=== PATIENT | female | born 1955 | race Caucasian/White ===

== ENCOUNTER 2020-02-17 13:10 | Observation (INO) | payer OTHER, MEDICAID, SELFPAY ==
[2020-02-17] VITALS (21 sets, daily range): BP systolic 87–107; BP diastolic 50–62; PULSE 62–85; RESP 8–25; TEMP 36.6–37.1; O2SAT 96–100; BMI 26.4
[2020-02-17] MEDS: MIDAZOLAM 5 MG/ML VIAL (13:20)
--- NOTE | 2020-02-17 13:28 | DI.RAD.S_ITS ---
PROCEDURE: XR CHEST 1V INDICATIONS: chest pain, 90sec CPR TECHNIQUE: One view of the chest was acquired. COMPARISON: None. FINDINGS: Surgical changes and devices: None. Lungs and pleura: There is prominence of the central pulmonary vasculature. No acute airspace consolidation is seen. No pleural effusions or pneumothorax. Mediastinum: Mediastinal contours appear normal. Heart size is normal. Mild atherosclerotic calcifications in the aortic arch. Bones and chest wall: No suspicious bony lesions. Overlying soft tissues appear unremarkable. IMPRESSION: Mild prominence of the central pulmonary vasculature. No acute airspace opacity. No pneumothorax. Dictated by: Max Bray M.D. on 02/17/2020 at 12:57 Approved by: Max Bray M.D. on 02/17/2020 at 13:00
[2020-02-17] MEDS: SODIUM CHLORIDE 0.9% 1,000 ML 1000 ML IV ×2 (13:35→14:25)
[2020-02-17] MEDS: MIDAZOLAM 2 MG/2 ML VIAL (13:35)
--- NOTE | 2020-02-17 13:48 | ED_ITS ---
HPI - General Adult General Chief complaint: Unresponsive Stated complaint: Unresponsive Time Seen by Provider: 02/17/20 13:10 History of Present Illness HPI narrative: 64-year-old woman brought in by medics with reports of known seizure disorder. Was at the [facility], was taking her topiramate. Went into the bathroom as was found unresponsive. CPR was briefly initiated(staff report 90 seconds), 2 doses of 0.4 mg of intranasal Narcan were administered and she was clearly beginning to respond by the time of medics arrival. She became increasingly agitated, complaining of central chest pain from the CPR and moderately combative. Initial workup is started subsequent seizure was noted in the emergency room (see MDM section for details). After the 2nd seizure was adequately controlled with Versed additional records became available. It turns out that she has been out of her to peer made 100 mg b.i.d. for the last 5 days. Apparently had a seizure yesterday and 2 earlier this morning (in the total number of seizures up to 4 today). 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 From notes she apparently fell last night and landed on her right arm and was originally complaining of some mild right arm pain with some mild swelling but full range of motion at elbow wrist and with fingers. Records indicate that she takes 30 mg of methadone daily Review of Systems Review of Systems ROS Unobtainable: Unobtainable due to mental status/LOC Patient History Medical History (Updated 02/17/20 @ 16:21 by Daphne Lee MD) Opioid use disorder Seizure disorder Exam Narrative Exam Narrative: General: Disheveled, mildly combative, well perfused, dramatic affect of behavior and complaints of pain post brief episode of CPR HEENT: Moist mucous membranes, normal sclera with reactive pupils, small contusion to the lateral aspect right eyebrow Neck: No JVD, supple Respiratory: Lungs are clear to auscultation, no wheezing no rales no rhonchi. Full and symmetrical air movement Cardiac: Tachycardic but Regular rate and rhythm no murmurs no bruits Abdomen: Soft nontender good bowel tones, no flank pain Skin: Multiple bruises in various stages of healing. Minor abrasion to the right landrum appears to be 24 hours old. Old track wallis, no rashes or obvious ce llulitis Neurologic: Confused, postictal Extremities: well perfused, minor swelling to the dorsum of the right forearm with no obvious bony abnormality, mild contusion to the right landrum with no obvi ous bony abnormality. Neurovascularly intact distal to both injuries Psych: Postictal, moaning and dramatic affect of behavior unable to refocus answer direct questions Initial Vital Signs Initial Vital Signs: Vital Signs Temperature 98.7 F 02/17/20 13:15 Pulse Rate 81 02/17/20 13:15 Respiratory Rate 22 02/17/20 13:15 Blood Pressure 91/50 L 02/17/20 13:15 Pulse Oximetry 100 02/17/20 13:15 Course Orders Ordered: ED Orders 02/17/20 13:28 XR chest 1V Stat EKG-12 Lead Stat 02/17/20 13:45 Complete Blood Count AUTO DIFF Stat Comprehensive Metabolic Panel Stat Magnesium Stat 02/17/20 14:19 Urinalysis and Microscopic Stat Urine Culture Stat Urine Drug Screen, Rapid Stat 02/17/20 14:56 XR forearm RT 2V Stat 02/17/20 15:04 COVID19 Stat 02/17/20 16:14 Acetaminophen Stat Blood Culture Stat Complete Blood Count AUTO DIFF Stat Comprehensive Metabolic Panel Stat Ethanol (ETOH) Stat Hepatic (Liver) Panel Stat Lactate (Lactic Acid) Stat Procalcitonin Stat Salicylate Stat Urine Drug Screen, Rapid Stat Sodium Chloride (Normal Saline 0.9%) 1,000 mls @ 150 mls/hr IV CONT WENCESLAO Discontinued Medications Sodium Chloride (Normal Saline 0.9%) 1,000 mls @ 1,000 mls/hr IV BOLUS ONE Stop: 02/17/20 14:26 Last Infusion: 02/17/20 14:35 Dose: 0 mls/hr Documented by: RAULINOLela Admin: 02/17/20 13:35 Dose: 1,000 mls/hr Documented by: CEASAR Levetiracetam 1,500 mg/ Sodium (Chloride) 115 mls @ 460 mls/hr IV NOW ONE Stop: 02/17/20 13:48 Last Infusion: 02/17/20 14:24 Dose: 0 mls/hr Documented by: RAULINOLela Admin: 02/17/20 14:05 Dose: 460 mls/hr Documented by: CEASAR Sodium Chloride (Normal Saline 0.9%) 1,000 mls @ 1,000 mls/hr IV BOLUS ONE Stop: 02/17/20 15:19 Last Infusion: 02/17/20 15:22 Dose: 0 mls/hr Documented by: Admin: 02/17/20 14:25 Dose: 1,000 mls/hr Documented by: CEASAR Lorazepam (Lorazepam 2 Mg/Ml Inj) 0.5 mg IV NOW ONE Stop: 02/17/20 13:28 Midazolam HCl (Midazolam 5 Mg/Ml Vial) 5 mg IM NOW ONE Stop: 02/17/20 16:17 Midazolam HCl (Midazolam 2 Mg/2 Ml Vial) 2 mg IV NOW ONE Stop: 02/17/20 16:17 Ondansetron HCl (Ondansetron 4 Mg/2 Ml Inj) 4 mg IV NOW ONE Stop: 02/17/20 13:28 Vital Signs Vital signs: Vital Signs - 8 hr 02/17/20 13:15 02/17/20 13:16 02/17/20 13:30 Temperature 98.7 F Pulse Rate 81 85 79 Respiratory Rate 22 25 H 20 Blood Pressure 91/50 L Pulse Oximetry 100 96 02/17/20 13:46 02/17/20 14:00 02/17/20 14:30 Temperature Pulse Rate 84 83 79 Respiratory Rate 15 Blood Pressure 107/56 L 91/50 L 87/55 L Pulse Oximetry 100 100 100 02/17/20 15:00 02/17/20 15:30 Temperature Pulse Rate 72 68 Respiratory Rate 12 11 L Blood Pressure 95/58 L 98/58 L Pulse Oximetry 100 98 Medical Decision Making Medical Records Medical records reviewed: Yes I reviewed the patient's medical records. Lab Data Lab results reviewed: Yes I reviewed the patient's lab results. Result diagrams: 02/17/20 13:45 02/17/20 13:45 Labs: Lab Results 02/17/20 02/17/20 02/17/20 Range/Units 13:45 13:45 14:19 WBC 15.6 H (4.5-11.0) X10^3/uL RBC 4.11 (4.0-5.2) X10^6/uL Hgb 12.8 (12.0-16.0) g/dL Hct 37.5 (36-46) % MCV 91.3 (80-100) fL MCH 31.2 (26-34) PG MCHC 34.2 (30-36) % RDW 14.0 (11.6-14.8) % Plt Count 128 L (150-400) X10^3/uL Neut % (Auto) 74.3 (50-75) % Lymph % (Auto) 16.6 L (25-40) % [place] % (Auto) 8.1 (3-14) % Eos % (Auto) 0.2 L (2-4) % Baso % (Auto) 0.8 (0-2) % Neut # (Auto) 78836 H (7113-2324) /uL Lymph # (Auto) 2600 (5129-1067) /uL [place] # (Auto) 1300 H (0-900) /uL Eos # (Auto) 0 (0-450) /uL Baso # (Auto) 100 (0-100) /uL Sodium 129 L (137-145) mmol/L Potassium 4.3 (3.4-5.1) mmol/L Chloride 96 L (98-107) mmol/L Carbon Dioxide 17 L (22-32) mmol/L BUN 43 H (7-17) mg/dL Creatinine 2.01 H (0.52-1.04) mg/dL Estimated GFR 25.1 L (>60) mL/min BUN/Creatinine Ratio 21.4 (6-22) Glucose 135 H (80-110) mg/dL Calcium 9.2 (8.4-10.2) mg/dL Magnesium 1.8 (1.6-2.3) mg/dL Total Bilirubin 1.1 (0.2-1.3) mg/dL AST 500 H (14-36) IU/L ALT 130 H (<35) IU/L Alkaline Phosphatase 101 (38-126) U/L Total Protein 8.6 H (6.3-8.2) g/dL Albumin 4.9 (3.5-5.0) g/dL Globulin 3.7 (1.7-4.1) g/dL Albumin/Globulin Ratio 1.3 (1.0-2.8) Urine Color Yellow Urine Appearance Clear Urine pH 5.0 (4.5-8.0) Ur Specific [place] >=1.030 H (1.000-1.035) Urine Protein 1+ H (Negative) Urine Glucose (UA) Negative (Negative) g/dL Urine Ketones Negative (NEGATIVE) Urine Occult Blood 3+ H (Negative) Urine Nitrate Negative (Negative) Urine Bilirubin Negative (NEGATIVE) Urine Urobilinogen 0.2 (0.2) E.U./dL Ur Leukocyte Esterase Negative (NEGATIVE) Urine RBC 5-10/hpf H (0-5/HPF) Urine WBC 0-1/hpf (0-5/HPF) Ur Squamous Epith Cells 0-1 /hpf (0-5/HPF) Amorphous Sediment 3+ Urine Bacteria None seen (None) Ur Culture Indicated? Specimen cultured U Opiates 300ng/mL cut (Negative) Ur Oxycodone Screen (Negative) Urine Methadone Screen (Negative) Ur Barbiturates Screen (Negative) U Tricyclic Antidepress (Negative) Ur Phencyclidine Scrn (Negative) Ur Amphetamines Screen (Negative) U Methamphetamines Scrn (Negative) Ur MDMA Scrn (Ecstasy) (Negative) U Benzodiazepines Scrn (Negative) Urine Cocaine Screen (Negative) U Marijuana (THC) Screen (Negative) COVID-19 PCR (Negative) 02/17/20 02/17/20 Range/Units 14:19 15:04 WBC (4.5-11.0) X10^3/uL RBC (4.0-5.2) X10^6/uL Hgb (12.0-16.0) g/dL Hct (36-46) % MCV (80-100) fL MCH (26-34) PG MCHC (30-36) % RDW (11.6-14.8) % Plt Count (150-400) X10^3/uL Neut % (Auto) (50-75) % Lymph % (Auto) (25-40) % [place] % (Auto) (3-14) % Eos % (Auto) (2-4) % Baso % (Auto) (0-2) % Neut # (Auto) (7740-3187) /uL Lymph # (Auto) (4757-7535) /uL [place] # (Auto) (0-900) /uL Eos # (Auto) (0-450) /uL Baso # (Auto) (0-100) /uL Sodium (137-145) mmol/L Potassium (3.4-5.1) mmol/L Chloride (98-107) mmol/L Carbon Dioxide (22-32) mmol/L BUN (7-17) mg/dL Creatinine (0.52-1.04) mg/dL Estimated GFR (>60) mL/min BUN/Creatinine Ratio (6-22) Glucose (80-110) mg/dL Calcium (8.4-10.2) mg/dL Magnesium (1.6-2.3) mg/dL Total Bilirubin (0.2-1.3) mg/dL AST (14-36) IU/L ALT (<35) IU/L Alkaline Phosphatase (38-126) U/L Total Protein (6.3-8.2) g/dL Albumin (3.5-5.0) g/dL Globulin (1.7-4.1) g/dL Albumin/Globulin Ratio (1.0-2.8) Urine Color Urine Appearance Urine pH (4.5-8.0) Ur Specific [place] (1.000-1.035) Urine Protein (Negative) Urine Glucose (UA) (Negative) g/dL Urine Ketones (NEGATIVE) Urine Occult Blood (Negative) Urine Nitrate (Negative) Urine Bilirubin (NEGATIVE) Urine Urobilinogen (0.2) E.U./dL Ur Leukocyte Esterase (NEGATIVE) Urine RBC (0-5/HPF) Urine WBC (0-5/HPF) Ur Squamous Epith Cells (0-5/HPF) Amorphous Sediment Urine Bacteria (None) Ur Culture Indicated? U Opiates 300ng/mL cut Positive H (Negative) Ur Oxycodone Screen Negative (Negative) Urine Methadone Screen Negative (Negative) Ur Barbiturates Screen Negative (Negative) U Tricyclic Antidepress Negative (Negative) Ur Phencyclidine Scrn Negative (Negative) Ur Amphetamines Screen Negative (Negative) U Methamphetamines Scrn Negative (Negative) Ur MDMA Scrn (Ecstasy) Negative (Negative) U Benzodiazepines Scrn Negative (Negative) Urine Cocaine Screen Negative (Negative) U Marijuana (THC) Screen Negative (Negative) COVID-19 PCR Negative (Negative) Imaging Data Chest x-ray: Radiologist's Impression: FINDINGS: Surgical changes and devices: None. Lungs and pleura: There is prominence of the central pulmonary vasculature. No acute airspace consolidation is seen. No pleural effusions or pneumothorax. Mediastinum: Mediastinal contours appear normal. Heart size is normal. Mild atherosclerotic calcifications in the aortic arch. Bones and chest wall: No suspicious bony lesions. Overlying soft tissues appear unremarkable. IMPRESSION: Mild prominence of the central pulmonary vasculature. No acute airspace opacity. No pneumothorax. Dictated by: Max Bray M.D. on 02/17/2020 at 12:57 XR Right forarm: Radiologist's Impression: FINDINGS: Bones: No acute fractures or dislocations. Small ossicle adjacent to the ulnar styloid. No suspicious bony lesions. Soft tissues: No suspicious soft tissue calcifications or masses. IMPRESSION: No acute osseous abnormality. Small ossicle adjacent to the ulnar styloid may be the sequelae of prior trauma. Dictated by: Bryce Rutherford M.D. on 02/17/2020 at 15:32 MDM Narrative Medical decision making narrative: 140pm patient began having a grand mal seiz ure. No IV access due to her history of IV drug use. She is given 5 mg of IM Versed with continued seizure activity based on eye movement however overall motor movement has calm significantly. Oxygen per nasal cannula is placed in saturations remained 100% range. Continues to seize and a peripheral IV is placed with ultrasound guidance into the right internal jugular vein for IV access. She was given an additional 2 mg of IV Versed with seizure seeming to stop completely and eyes returning to midline and mid position pupils. Labs are sent, chest x-rays obtained, Viera is placed for U tox. She does have a seizure history unclear why she has now had 2 seizures today. She was in the process of taking her 200 mg of topiramate today when she had the seizure noted at the clinic.. She has not been coherent enough since arrival in the ER, still partially postictal and then 2nd seizure. Notes indicate that she is on 30 mg of methadone a day. It may be that the 2 doses of 0.4 mg of in tranasal Narcan are exacerbating her baseline seizure disorder. Will await labs and continue close monitoring. White blood cell count elevation is likely secondary to demargination after multiple seizures today. Creatinine of 2 with unknown baseline. At least 4 seizures today, currently significantly sedated after Versed used to control seizure in the emergency department. Nasal airway in place and nasal cannula oxygen administered. Moderately hypotensive presumably secondary to Versed. As she is beginning to awake will continue to follow blood pressures. She is afebrile and per previous notes from her clinic visit is prior to the emergency visit she had no infectious disease complaints of any kind. 3:50 beginning to wake up, still sedated from the Versed. Blood pressure increasing. Still not oriented to person place or events. 415pm care is reviewed with Dr. Marino, hospitalist. She will be admitted for additional observation regarding recurrent seizures in the setting of known seizure disorder as well as dehydration with acute renal insufficiency. Will add of procalcitonin as well as blood cultures to confirm the clinical impression of no obvious infectious etiology to explain her symptoms today. She will be a admitted observation status with telemetry. Critical Care Time Critical Care Time Critical Care Time: Yes Total Critical Care Time: 31 Attestation: Critical care time is separate from other billable procedures. This critical care time includes consultation with family and other consulting doctors, review of records, and interpretation of data from labs, EKGs and imaging as well as managements of acute seizure her management with concern for airway compromise. Discharge Plan Departure Patient Disposition: Admitted as Observation Clinical Impression: Seizure disorder, Opioid use disorder, Acute dehydration, Acute renal insufficiency Contusion of forearm, right Qualifiers: Encounter type: initial encounter Qualified Code(s): S50.11XA - Contusion of right forearm, initial encounter Admit Date/Time: 02/17/20 16:19 Admit Provider: Angelqiue Marino
[2020-02-17 13:51] LABS: Add Manual Diff / Slide Review NO; Basophils Absolute Auto 100 /uL (0-100); Basophils Percent Auto 0.8 % (0-2); Eosinophils Absolute Auto 0 /uL (0-450); Eosinophils Percent Auto 0.2 % (2-4); Hematocrit 37.5 % (36-46); Hemoglobin 12.8 g/dL (12.0-16.0); Lymphocytes Absolute Auto 2600 /uL (1100-4500); Lymphocytes Percent Auto 16.6 % (25-40); Mean Corpuscular HGB Conc 34.2 % (30-36); Mean Corpuscular Hemoglobin 31.2 PG (26-34); Mean Corpuscular Volume 91.3 fL (80-100); Monocytes Absolute Auto 1300 /uL (0-900); Monocytes Percent Auto 8.1 % (3-14); Neutrophils Absolute Auto 11500 /uL (1500-7000); Neutrophils Percent Auto 74.3 % (50-75); Platelet Count 128 X10^3/uL (150-400); Red Blood Cell Count 4.11 X10^6/uL (4.0-5.2); White Blood Cell Count 15.6 X10^3/uL (4.5-11.0)
[2020-02-17 14:05] LABS: Albumin 4.9 g/dL (3.5-5.0); Albumin Globulin Ratio 1.3 (1.0-2.8); Alkaline Phosphatase 101 U/L (38-126); Aspartate Aminotransferase 500 IU/L (14-36); BUN Creatinine Ratio 21.4 (6-22); Bilirubin Total 1.1 mg/dL (0.2-1.3); Blood Urea Nitrogen 43 mg/dL (7-17); Calcium 9.2 mg/dL (8.4-10.2); Carbon Dioxide 17 mmol/L (22-32); Chloride 96 mmol/L (98-107); Estimated Glomerular Filt Rate 25.1 mL/min (>60); Globulin 3.7 g/dL (1.7-4.1); Glucose 135 mg/dL (80-110); HEMOLYSIS 66 (0-50); Magnesium 1.8 mg/dL (1.6-2.3); Potassium 4.3 mmol/L (3.4-5.1); Sodium 129 mmol/L (137-145); Total Protein 8.6 g/dL (6.3-8.2)
[2020-02-17] MEDS: levETIRAcetam 1,500 MG in SODIUM CHLORIDE 0.9% 100 ML 460 ML IV (14:05)
[2020-02-17 14:11] LABS: Alanine Aminotransferase 130 IU/L (<35)
[2020-02-17 14:49] LABS: Bacteria Urine None Seen
[2020-02-17 14:50] LABS: Appearance Urine UA CLEAR; Bilirubin Urine UA NEGATIVE (NEGATIVE); Color Urine UA YELLOW; Glucose Urine UA NEGATIVE (Negative); Ketones Urine UA NEGATIVE (NEGATIVE); Leukocyte Esterase Urine UA NEGATIVE (NEGATIVE); Nitrite Urine UA NEGATIVE (Negative); Occult Blood Urine UA 3+ (Negative); Protein Urine UA 1+ (Negative); Specific Gravity Urine UA >=1.030 (1.000-1.035); Urobilinogen Urine UA 0.2 E.U./dL (0.2)
[2020-02-17 14:56] LABS: UR Morphine/Opiate cutoff 300 Positive (Negative); Ur Creatinine Normal (Normal); Ur Specific Gravity Normal (Normal); Urine Amphetamines Negative (Negative); Urine Barbiturates Negative (Negative); Urine Benzodiazepines Negative (Negative); Urine Cocaine Negative (Negative); Urine MDMA Negative (Negative); Urine Methadone Negative (Negative); Urine Methamphetamines Negative (Negative); Urine Oxycodone Negative (Negative); Urine Phencyclidine Negative (Negative); Urine Tetrahydrocannabinol Negative (Negative); Urine Tricyclic Antidepressant Negative (Negative); Urine pH Normal (Normal)
--- NOTE | 2020-02-17 14:56 | DI.RAD.S_ITS ---
PROCEDURE: XR FOREARM RT 2V INDICATIONS: trauma TECHNIQUE: 2 views of the forearm were acquired. COMPARISON: None. FINDINGS: Bones: No acute fractures or dislocations. Small ossicle adjacent to the ulnar styloid. No suspicious bony lesions. Soft tissues: No suspicious soft tissue calcifications or masses. IMPRESSION: No acute osseous abnormality. Small ossicle adjacent to the ulnar styloid may be the sequelae of prior trauma. Dictated by: Bryce Rutherford M.D. on 02/17/2020 at 15:32 Approved by: Bryce Rutherford M.D. on 02/17/2020 at 15:34
[2020-02-17 15:03] LABS: Amorphous Sediment Urine 3+; Culture Indicated Urine Specimen Cultured; RBC Urine 5-10/HPF (0-5/HPF); Squamous Epithelial Cell Urine 0-1 /HPF (0-5/HPF); WBC Urine 0-1/HPF (0-5/HPF)
[2020-02-17 15:23] LABS: COVID19 -Nasal RAPID Negative (Negative)
[2020-02-17 16:58] LABS: Add Manual Diff / Slide Review NO; Basophils Absolute Auto 0 /uL (0-100); Basophils Percent Auto 0.1 % (0-2); Eosinophils Absolute Auto 0 /uL (0-450); Eosinophils Percent Auto 0.2 % (2-4); Hematocrit 32.4 % (36-46); Hemoglobin 11.4 g/dL (12.0-16.0); Lymphocytes Absolute Auto 900 /uL (1100-4500); Lymphocytes Percent Auto 10.2 % (25-40); Mean Corpuscular HGB Conc 35.1 % (30-36); Mean Corpuscular Hemoglobin 31.9 PG (26-34); Mean Corpuscular Volume 91.1 fL (80-100); Monocytes Absolute Auto 400 /uL (0-900); Monocytes Percent Auto 5.2 % (3-14); Neutrophils Absolute Auto 7200 /uL (1500-7000); Neutrophils Percent Auto 84.3 % (50-75); Platelet Count 70 X10^3/uL (150-400); Red Blood Cell Count 3.56 X10^6/uL (4.0-5.2); Red Cell Distribution Width 13.9 % (11.6-14.8); White Blood Cell Count 8.5 X10^3/uL (4.5-11.0)
--- NOTE | 2020-02-17 17:00 | PC.NURSE ---
attempted to call report to CHRISTIANO Vela on AC at [phone].
[2020-02-17 17:28] LABS: Lactate (Lactic Acid) 0.8 mmol/L (0.7-2.1)
[2020-02-17 17:28] LABS: Acetaminophen < 10 ug/mL (10-30); Alanine Aminotransferase 120 IU/L (<35); Albumin 3.7 g/dL (3.5-5.0); Albumin Globulin Ratio 1.2 (1.0-2.8); Alkaline Phosphatase 87 U/L (38-126); Aspartate Aminotransferase 416 IU/L (14-36); BUN Creatinine Ratio 25.8 (6-22); Bilirubin Total 0.7 mg/dL (0.2-1.3); Bilirubin Unconjugated 0.5 mg/dL (0.0-1.1); Blood Urea Nitrogen 41 mg/dL (7-17); Calcium 8.1 mg/dL (8.4-10.2); Carbon Dioxide 25 mmol/L (22-32); Chloride 99 mmol/L (98-107); Estimated Glomerular Filt Rate 32.9 mL/min (>60); Ethanol (ETOH) < 10 mg/dL; Glucose 122 mg/dL (80-110); HEMOLYSIS < 15 (0-50); Potassium 4.3 mmol/L (3.4-5.1); Salicylate < 1.0 mg/dL (<20); Sodium 128 mmol/L (137-145); Total Protein 6.7 g/dL (6.3-8.2)
[2020-02-17 17:57] LABS: Procalcitonin 5.25 ng/mL (<0.5)
--- NOTE | 2020-02-17 18:37 | PC.ADMIT ---
[address] [facility] 12 Admission Note: The patient,Fide Oconnor,64 y/o, was given written information regarding hospital policies, unit procedures and contact persons. Patient's smoking status: Current every day smoker. Vital Signs - 8 hr 02/17/20 13:15 02/17/20 13:16 02/17/20 13:30 Temperature 98.7 F Pulse Rate 81 85 79 Respiratory Rate 22 25 H 20 Blood Pressure 91/50 L Pulse Oximetry 100 96 02/17/20 13:46 02/17/20 14:00 02/17/20 14:30 Temperature Pulse Rate 84 83 79 Respiratory Rate 15 Blood Pressure 107/56 L 91/50 L 87/55 L Pulse Oximetry 100 100 100 02/17/20 15:00 02/17/20 15:30 02/17/20 16:00 Temperature Pulse Rate 72 68 67 Respiratory Rate 12 11 L 10 L Blood Pressure 95/58 L 98/58 L 99/59 L Pulse Oximetry 100 98 100 02/17/20 16:30 02/17/20 17:00 Temperature Pulse Rate 68 67 Respiratory Rate 12 10 L Blood Pressure 104/60 102/62 Pulse Oximetry 100 98 Patient brought up from ED via stretcher. Patient somnolent but wakes easily and then falls back to sleep. Moans and grimaces with movement d/t chest compressions by medics, aware of discomfort and lido patch ordered. No seizures noted at this time. Patient with 2L o2 sats high 90s. Found lockbox in belongings, patient states its from the [facility] clinic. Placed Lockbox and cigarettes in hospital safe, explained to patient about putting it in the safe, she was okay with it but still very somnolent and unable to sign paper for the safe.
[2020-02-17] MEDS: LIDOCAINE PATCH 1 EACH ADH..PATCH TOP (19:14)
[2020-02-17 19:49] LABS: UR Morphine/Opiate cutoff 300 Positive (Negative); Ur Creatinine Normal (Normal); Ur Specific Gravity Normal (Normal); Urine Benzodiazepines Positive (Negative); Urine Methadone Positive (Negative); Urine pH Normal (Normal)
[2020-02-17 19:50] LABS: Urine Amphetamines Negative (Negative); Urine Barbiturates Negative (Negative); Urine Cocaine Negative (Negative); Urine MDMA Negative (Negative); Urine Methamphetamines Negative (Negative); Urine Oxycodone Negative (Negative); Urine Phencyclidine Negative (Negative); Urine Tetrahydrocannabinol Negative (Negative); Urine Tricyclic Antidepressant Negative (Negative)
--- NOTE | 2020-02-17 20:07 | PM.HP.1 ---
History of Present Illness History of Present Illness Date Patient Seen: 02/17/20 Time Patient Seen: 20:05 Chief complaint: Unresponsive Narrative: Ms. Fide Oconnor is a 64-year-old female with a past medical history for opiate use disorder, seizure disorder and hypothyroidism who was brought into the ER by EMS following being found down. The patient has no recollection of events of earlier today and is a poor historian with difficulty remaining during patient interview. The patient was at the [facility] and reportedly received her daily methadone dose of 30 mg. Patient subsequently to the bathroom where she was found unresponsive with a history of continuing heroin use. CPR was initiated for an estimated 90 seconds and 2 doses 0.4 mg Narcan administered prior to arrival of EMS at which time the patient became agitated and combative. While in the ER the patient developed a another grand mal seizure and initially received 5 mg IM Versed lacking a patent IV due to IVDA. The patient continued disease therefore a right IJ IV was started and 2 mg mg of Versed administered IV with cessation of seizure activity. 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 The patient provides a variable history to different providers telling 1 she last injected heroin 2 days ago and telling another that she injected heroin and took her methadone today. She further adds that she has not taken her topiramate for 8 days but is unable to state why or who provides her medication, she states she ran out. ER documentation notes 1 seizure yesterday and 4 seizures today. The patient states she smokes a few cigarettes a day and drinks occasional alcohol. The patient denies recent illness cold or flu symptoms and has no known COVID-19 exposures. She denies headaches, dizziness or diplopia. She denies nasal congestion or sore throat. She complains of marked anterior chest wall pain after CPR. She denies abdominal pain, nausea vomiting or changes in bowel or bladder habits. Upon arrival to the ER the patient has temperature of 98.7?, heart rate of 81, blood pressure 91/50, respirations of 22 saturating 100% on 4 L nasal cannula. A chest x-ray is obtained which finds mild central pulmonary vascular prominence but no opacities and no pneumothorax. X-ray of the right forearm finds no fractures or dislocations or osseous abnormality. Twelve lead EKG finds sinus rhythm at a rate of 80 without ectopy or block, no ST or T-wave changes or evidence of infarct. On laboratory analysis the patient has white count of 8.5, hemoglobin of 11.4, hematocrit of 32.4 and platelets of 70. On chemistry she has hyponatremic at 1:28 a.m. and has a BUN of 41 with a creatinine 1.59 for an EGFR 32.9. Her nonfasting glucose is 122. Her magnesium is 1.8. Liver panel finds a total bilirubin is 0.5, AST of 416, ALT of 120 and alkaline phosphatase of 87. Her albumin level is 3.7. Procalcitonin is elevated at 5.25. On urinalysis she has a specific gravity of 1.030, positive protein and blood but negative leukocyte esterase nitrites WBCs and bacteria. While in the ER the patient received 2 doses of Versed, lorazepam 0.5 mg Keppra 500 mg Zofran 4 mg and 2 L normal saline in normal saline 150 cc/hour. The patient is admitted to the medicine service for multiple seizures today. Patient History Medical History Hypothyroidism Opioid use disorder Seizure disorder Surgical History History of craniotomy Family & Social History Family History (Updated 02/17/20 @ 22:38 by RUBEN Beebe) Father Hypertension Mother Emphysema lung Smoker Social History: household members none Prior Living Arrangements House Safety & Behavioral: Feels Safe in Current Yes Environment Been Physically Hurt or No Threatened By a Person Suicidal Ideation Description None Suicide Plan Description No Plan Tobacco & Substance use: Tobacco type cigarettes Smoking Status Current every day smoker alcohol intake former Substance Use Type heroin,IV drugs Meds Home Medications and Allergies Home Medications Medication Instructions Recorded Confirmed Type furosemide 20 mg PO DAILY 02/17/20 02/17/20 History levothyroxine 75 mcg PO DAILY 02/17/20 02/17/20 History methadone 30 mg PO DAILY 02/17/20 02/17/20 History spironolactone 25 mg PO DAILY 02/17/20 02/17/20 History topiramate 100 mg PO BID 02/17/20 02/17/20 History Allergies Allergy/AdvReac Type Severity Reaction Status Date / Time codeine Allergy Mild Rash Verified 12/04/20 18:20 clindamycin AdvReac Intermediate Agitated Verified 02/17/20 18:20 Review of Systems Review of Systems ROS: Yes All systems reviewed with the patient and are negative except as otherwise documented Exam Vital Signs (past 8 hours): - 02/17/20 14:30 02/17/20 15:00 02/17/20 15:30 Temperature Pulse Rate 79 72 68 Respiratory Rate 15 12 11 L Blood Pressure 87/55 L 95/58 L 98/58 L Pulse Oximetry 100 100 98 02/17/20 16:00 02/17/20 16:30 02/17/20 17:00 Temperature Pulse Rate 67 68 67 Respiratory Rate 10 L 12 10 L Blood Pressure 99/59 L 104/60 102/62 Pulse Oximetry 100 100 98 02/17/20 17:30 02/17/20 17:32 02/17/20 18:13 Temperature Pulse Rate 65 66 65 Respiratory Rate 13 13 13 Blood Pressure 98/58 L 99/58 L Pulse Oximetry 100 100 02/17/20 18:30 02/17/20 19:00 02/17/20 19:17 Temperature Pulse Rate 63 63 62 Respiratory Rate 8 L 8 L 13 Blood Pressure 96/56 L Pulse Oximetry 100 99 99 02/17/20 19:30 02/17/20 20:00 02/17/20 20:10 Temperature 97.8 F Pulse Rate 62 62 Respiratory Rate 9 L 10 L Blood Pressure Pulse Oximetry 99 100 02/17/20 20:30 Temperature Pulse Rate 62 Respiratory Rate 22 Blood Pressure Pulse Oximetry 100 Oxygen Delivery Method Nasal Cannula Oxygen Flow Rate 4 Narrative Exam Narrative: GENERAL APPEARANCE: well developed, adequately nourished, unkempt, difficult to arouse and maintain responsiveness. HEENT: Contusion right alevism, PERRLA, sluggish, conjunctiva clear, sclera nonicteric EOMs intact without nystagmus, no sinus tenderness to percussion, no rhinorrhea or epistaxis, mucous membranes are and tongue are dry and pink without lesions or exudate. NECK/THYROID: neck supple, no step-offs, no palpable muscle spasms, no JVD, no carotid bruit, no thyromegaly, trachea midline. LYMPH NODES: no cervical or supraclavicular lymphadenopathy. SKIN: [place], warm and dry, multiple track wallis, small firm nodule right ventral forearm nontender, multiple bruises in various stages of healing, abrasion and tibial tubercle appears older without bleeding, firm nontender area right hip without redness, no evidence of cellulitis HEART: regular rate and rhythm, S1-S2, no murmur, no rubs or gallops, brisk capillary refill, no edema LUNGS: clear to auscultation bilaterally, no coarseness crackles or wheezing, no cough present CHEST: Symmetrical movement, no accessory muscle use, shallow tidal volume, marked anterior chest wall pain on AP compression. ABDOMEN: Soft, dull to percussion, no distention, no epigastric or abdominal tenderness, no organomegaly, no flank or suprapubic tenderness, active bowel tones. BACK: Normal curvature, nontender to palpation. EXTREMITIES: Preserved range of motion in all extremities, right hip pain with internal rotation, RLE strength is 5/5 LLE strength is 3//5, no deformities or joint effusions. NEUROLOGIC: AAO to person only, states she is in [place], states the month of April correctly indicates the year, cranial nerves II-XII grossly intact, sensation intact to light touch, hearing grossly normal to speech. PSYCH: Patient difficult to remain awake requires repeat stimulation to respond to questions, questionable historian cooperative, stable behavior. Objective Labs Result Diagrams: 02/17/20 16:50 02/17/20 16:25 Labs: Laboratory Results - last 24 hr 02/17/20 02/17/20 02/17/20 13:45 13:45 13:45 WBC 15.6 H RBC 4.11 Hgb 12.8 Hct 37.5 MCV 91.3 MCH 31.2 MCHC 34.2 RDW 14.0 Plt Count 128 L Neut % (Auto) 74.3 Lymph % (Auto) 16.6 L [place] % (Auto) 8.1 Eos % (Auto) 0.2 L Baso % (Auto) 0.8 Neut # (Auto) 71490 H Lymph # (Auto) 2600 [place] # (Auto) 1300 H Eos # (Auto) 0 Baso # (Auto) 100 Sodium 129 L Potassium 4.3 Chloride 96 L Carbon Dioxide 17 L BUN 43 H Creatinine 2.01 H Estimated GFR 25.1 L BUN/Creatinine Ratio 21.4 Glucose 135 H Lactate Calcium 9.2 Magnesium 1.8 Total Bilirubin 1.1 Conjugated Bilirubin Unconjugated Bilirubin AST 500 H ALT 130 H Alkaline Phosphatase 101 Total Protein 8.6 H Albumin 4.9 Globulin 3.7 Albumin/Globulin Ratio 1.3 Procalcitonin TSH 2.91 Free T4 1.40 Urine Color Urine Appearance Urine pH Ur Specific [place] Urine Protein Urine Glucose (UA) Urine Ketones Urine Occult Blood Urine Nitrate Urine Bilirubin Urine Urobilinogen Ur Leukocyte Esterase Urine RBC Urine WBC Ur Squamous Epith Cells Amorphous Sediment Urine Bacteria Ur Culture Indicated? Nasal Screen MRSA (PCR) Salicylates U Opiates 300ng/mL cut Ur Oxycodone Screen Urine Methadone Screen Acetaminophen Ur Barbiturates Screen U Tricyclic Antidepress Ur Phencyclidine Scrn Ur Amphetamines Screen U Methamphetamines Scrn Ur MDMA Scrn (Ecstasy) U Benzodiazepines Scrn Urine Cocaine Screen U Marijuana (THC) Screen Ethyl Alcohol COVID-19 PCR 02/17/20 02/17/20 02/17/20 14:19 14:19 15:04 WBC RBC Hgb Hct MCV MCH MCHC RDW Plt Count Neut % (Auto) Lymph % (Auto) [place] % (Auto) Eos % (Auto) Baso % (Auto) Neut # (Auto) Lymph # (Auto) [place] # (Auto) Eos # (Auto) Baso # (Auto) Sodium Potassium Chloride Carbon Dioxide BUN Creatinine Estimated GFR BUN/Creatinine Ratio Glucose Lactate Calcium Magnesium Total Bilirubin Conjugated Bilirubin Unconjugated Bilirubin AST ALT Alkaline Phosphatase Total Protein Albumin Globulin Albumin/Globulin Ratio Procalcitonin TSH Free T4 Urine Color Yellow Urine Appearance Clear Urine pH 5.0 Ur Specific [place] >=1.030 H Urine Protein 1+ H Urine Glucose (UA) Negative Urine Ketones Negative Urine Occult Blood 3+ H Urine Nitrate Negative Urine Bilirubin Negative Urine Urobilinogen 0.2 Ur Leukocyte Esterase Negative Urine RBC 5-10/hpf H Urine WBC 0-1/hpf Ur Squamous Epith Cells 0-1 /hpf Amorphous Sediment 3+ Urine Bacteria None seen Ur Culture Indicated? Specimen cultured Nasal Screen MRSA (PCR) Salicylates U Opiates 300ng/mL cut Positive H Ur Oxycodone Screen Negative Urine Methadone Screen Negative Acetaminophen Ur Barbiturates Screen Negative U Tricyclic Antidepress Negative Ur Phencyclidine Scrn Negative Ur Amphetamines Screen Negative U Methamphetamines Scrn Negative Ur MDMA Scrn (Ecstasy) Negative U Benzodiazepines Scrn Negative Urine Cocaine Screen Negative U Marijuana (THC) Screen Negative Ethyl Alcohol COVID-19 PCR Negative 02/17/20 02/17/20 02/17/20 16:25 16:25 16:50 WBC 8.5 RBC 3.56 L Hgb 11.4 L Hct 32.4 L MCV 91.1 MCH 31.9 MCHC 35.1 RDW 13.9 Plt Count 70 L Neut % (Auto) 84.3 H Lymph % (Auto) 10.2 L [place] % (Auto) 5.2 Eos % (Auto) 0.2 L Baso % (Auto) 0.1 Neut # (Auto) 7200 H Lymph # (Auto) 900 L [place] # (Auto) 400 Eos # (Auto) 0 Baso # (Auto) 0 Sodium 128 L Potassium 4.3 Chloride 99 Carbon Dioxide 25 BUN 41 H Creatinine 1.59 H Estimated GFR 32.9 L BUN/Creatinine Ratio 25.8 H Glucose 122 H Lactate Calcium 8.1 L Magnesium Total Bilirubin 0.7 Conjugated Bilirubin 0.0 Unconjugated Bilirubin 0.5 AST 416 H ALT 120 H Alkaline Phosphatase 87 Total Protein 6.7 Albumin 3.7 Globulin 3.0 Albumin/Globulin Ratio 1.2 Procalcitonin 5.25 H TSH Free T4 Urine Color Urine Appearance Urine pH Ur Specific [place] Urine Protein Urine Glucose (UA) Urine Ketones Urine Occult Blood Urine Nitrate Urine Bilirubin Urine Urobilinogen Ur Leukocyte Esterase Urine RBC Urine WBC Ur Squamous Epith Cells Amorphous Sediment Urine Bacteria Ur Culture Indicated? Nasal Screen MRSA (PCR) Salicylates < 1.0 U Opiates 300ng/mL cut Ur Oxycodone Screen Urine Methadone Screen Acetaminophen < 10 L Ur Barbiturates Screen U Tricyclic Antidepress Ur Phencyclidine Scrn Ur Amphetamines Screen U Methamphetamines Scrn Ur MDMA Scrn (Ecstasy) U Benzodiazepines Scrn Urine Cocaine Screen U Marijuana (THC) Screen Ethyl Alcohol < 10 COVID-19 PCR 02/17/20 02/17/20 02/17/20 17:00 18:15 19:40 WBC RBC Hgb Hct MCV MCH MCHC RDW Plt Count Neut % (Auto) Lymph % (Auto) [place] % (Auto) Eos % (Auto) Baso % (Auto) Neut # (Auto) Lymph # (Auto) [place] # (Auto) Eos # (Auto) Baso # (Auto) Sodium Potassium Chloride Carbon Dioxide BUN Creatinine Estimated GFR BUN/Creatinine Ratio Glucose Lactate 0.8 Calcium Magnesium Total Bilirubin Conjugated Bilirubin Unconjugated Bilirubin AST ALT Alkaline Phosphatase Total Protein Albumin Globulin Albumin/Globulin Ratio Procalcitonin TSH Free T4 Urine Color Urine Appearance Urine pH Ur Specific [place] Urine Protein Urine Glucose (UA) Urine Ketones Urine Occult Blood Urine Nitrate Urine Bilirubin Urine Urobilinogen Ur Leukocyte Esterase Urine RBC Urine WBC Ur Squamous Epith Cells Amorphous Sediment Urine Bacteria Ur Culture Indicated? Nasal Screen MRSA (PCR) Positive for mrsa H Salicylates U Opiates 300ng/mL cut Positive H Ur Oxycodone Screen Negative Urine Methadone Screen Positive H Acetaminophen Ur Barbiturates Screen Negative U Tricyclic Antidepress Negative Ur Phencyclidine Scrn Negative Ur Amphetamines Screen Negative U Methamphetamines Scrn Negative Ur MDMA Scrn (Ecstasy) Negative U Benzodiazepines Scrn Positive H Urine Cocaine Screen Negative U Marijuana (THC) Screen Negative Ethyl Alcohol COVID-19 PCR Assessment & Plan Assessment & Plan narrative: This is a 64-year-old female with a past medical history significant for opiate use disorder, seizure disorder hypothyroidism who was at her methadone clinic where she was found down and unresponsive. CPR was initiated with administration Narcan with the patient waking too agitated and combative. Patient endorses receiving her methadone today and using heroin and has not taken her seizure medication for 8 days. The patient had 1 seizure yesterday and 4 today. 1. Seizure disorder with multiple seizures, not status epilepticus, chronic, present on admission, active -patient was found down and unresponsive at methadone clinic. Is unclear with his secondary to seizure or drug overdose. -patient has been down for topiramate for 8 days, she has numerous bruises in various stages of healing, through history obtained by the ER provider the patient had 1 seizure yesterday and appears to had 4 seizures today. -most recent seizure witnessed in the ER [place] in character requiring benzodiazepine for termination of seizure activity. -patient received Keppra 500 mg IV x1 in the ER. -or topiramate 100 mg twice daily. -ordered lorazepam 1 mg IV every 2 hours for seizures or may repeat x1 in 5 minutes for continued seizure activity. -seizure precautions. 2. acute heroin overdose on chronic opiate use disorder, present on admission, active. -patient was found unresponsive at methadone clinic where she receives methadone 30 mg daily. -patient endorses continuing use of heroin with last use today. Patient does not know their own was cut with other product. -patient was found down at the methadone clinic and responded well to intranasal Narcan 2 doses. 3. Acute dehydration, present on admission, active. -patient appears clinically dry even following receiving 2 L of saline in the emergency department. -sodium is low 128, urine specific gravity is 1.030 without evidence of ketones, elevated BUN at 41, and elevated creatinine 1.59 with no value available for comparison. BUN creatinine ratio is 25.8 -will continue rehydration with normal saline at 100 cc/hour 4. Elevated transaminase, acute, present on admission, active. -patient has a total bilirubin of 0.5, AST of 416 and ALT of 120 and alkaline phosphatase of 87. -the patient source is minimal alcohol intake and is significantly dehydrated. -the elevation is bleed related to some significant dehydration however will also obtain an acute hepatitis panel in the setting of IVDA. 5. Hypothyroidism, chronic, stable. -patient stopped taking her levothyroxine 75 mcg daily. -this may be participatory in exacerbation seizure activity, will check TSH. -ordered levothyroxine 75 mcg daily. 5. Medical nonadherence. -the patient has been been prescribed multiple medications including Lasix 40 mg and spirolactone 25 mg a day, levothyroxine 75 mcg today which she states she has decided to stop without discussing with her provider. -the patient is unable to state who prescribes her medications, per the pharmacy record she has into the care of Angie Coleman MD. -patient states she ran out of her seizure medication 8 days ago and had not sought to obtain a refil. -it is unclear whether this is related to monetary resources or resources redirected to heroin use. VTE prophylaxis: Heparin (plate are 70 will recheck platelets in morning). IV fluid: Normal saline at 100 cc per. Diet: Regular advanced as tolerated. Code status: Full code patient designates bread sure min her ex- to be her surrogate decision maker. the patient is admitted to the intensive care unit for recurrence seizure activity and drug overdose with altered mental status requiring close monitoring and treatment. The patient is admitted as observation with expected length of stay to be less than 2 midnights. COVID-19 COVID-19 status: Negative Result date/Date tested (Pos, Neg/Pending): 02/17/20 Scores GCS Ernst coma scale eye opening: To sound Ernst coma scale verbal response: Confused Ernst coma scale motor response: Obey commands Sigurd coma scale total score: 13 Quality VTE Deep Vein Thrombosis/Pulmonary Embolism Present on Admission: No
[2020-02-17] MEDS: SODIUM CHLORIDE 0.9% 1,000 ML 100 ML IV (20:48)
[2020-02-17 21:09] LABS: Thyroid Stimulating Hormone 2.91 uIU/mL (0.47-4.68)
[2020-02-17] MEDS: HEPARIN 5,000 UNIT/ML VIAL 5000 UNIT SUBCUT (21:42)
[2020-02-17] MEDS: TOPIRAMATE 100 MG TABLET PO (21:42)
--- NOTE | 2020-02-17 21:50 | PC.NURSE ---
Pt arrived in rm 226 per stretcher from ED @ 1740. Pt Lethargic but wakes to answer questions. Admission assessment completed and noted that Pt has weakness of the left arm and leg, which per history is typical after she has a seizure. Seizure precautions in place, oriented to environment and cooperative with care. Placed in Contact isolation for MRSA + ) IV to R EJ infusing NS @ 100hr.
[2020-02-18 00:10] VITALS: BP 91/65; PULSE 59; RESP 20; TEMP 36.3; O2SAT 99
[2020-02-18] MEDS: IBUPROFEN 600 MG TABLET PO ×2 (00:17→08:37)
[2020-02-18 04:30] VITALS: BP 94/52; PULSE 63; RESP 15; TEMP 36.1; O2SAT 99
[2020-02-18 04:47] LABS: Alanine Aminotransferase 125 IU/L (<35); Albumin 3.6 g/dL (3.5-5.0); Albumin Globulin Ratio 1.2 (1.0-2.8); Alkaline Phosphatase 68 U/L (38-126); BUN Creatinine Ratio 32.7 (6-22); Blood Urea Nitrogen 37 mg/dL (7-17); Calcium 8.7 mg/dL (8.4-10.2); Carbon Dioxide 27 mmol/L (22-32); Chloride 103 mmol/L (98-107); Estimated Glomerular Filt Rate 48.8 mL/min (>60); Globulin 3.1 g/dL (1.7-4.1); Glucose 94 mg/dL (80-110); Sodium 130 mmol/L (137-145); Total Protein 6.7 g/dL (6.3-8.2)
[2020-02-18 04:50] LABS: Add Manual Diff / Slide Review NO; Basophils Absolute Auto 100 /uL (0-100); Basophils Percent Auto 1.3 % (0-2); Eosinophils Absolute Auto 100 /uL (0-450); Eosinophils Percent Auto 1.5 % (2-4); Hematocrit 31.5 % (36-46); Hemoglobin 10.9 g/dL (12.0-16.0); Lymphocytes Absolute Auto 1700 /uL (1100-4500); Lymphocytes Percent Auto 28.1 % (25-40); Mean Corpuscular HGB Conc 34.6 % (30-36); Mean Corpuscular Hemoglobin 31.8 PG (26-34); Mean Corpuscular Volume 91.9 fL (80-100); Monocytes Absolute Auto 500 /uL (0-900); Monocytes Percent Auto 7.5 % (3-14); Neutrophils Absolute Auto 3700 /uL (1500-7000); Neutrophils Percent Auto 61.6 % (50-75); Platelet Count 68 X10^3/uL (150-400); Red Blood Cell Count 3.43 X10^6/uL (4.0-5.2); Red Cell Distribution Width 14.3 % (11.6-14.8); White Blood Cell Count 6.1 X10^3/uL (4.5-11.0)
[2020-02-18 04:51] LABS: HEMOLYSIS 92 (0-50)
[2020-02-18 04:54] LABS: Potassium 4.4 mmol/L (3.4-5.1)
[2020-02-18 04:55] LABS: Aspartate Aminotransferase 390 IU/L (14-36)
[2020-02-18 04:56] LABS: NT-proBNP (BNP-Adult 18+) 3050 pg/mL (<125)
[2020-02-18] MEDS: SODIUM CHLORIDE 0.9% 1,000 ML 100 ML IV (06:16)
--- NOTE | 2020-02-18 06:46 | PC.NURSE ---
Addendum entered by Shaunna Hanna R.N. 02/18/20 06:53: RUBEN Hannah notified of patients RR between 9-12 during the shift. No orders received. Will continue to monitor patient. Original Note: lumber stacker note: Patient remains lethargic during the shift, but does awaken to voice/touch. Patient unable to recall events from yesterday or how she got to [place]. Patient can state her name//year. Patient with left sided weakness on initial assessment in both upper and lower extremities, but generalized, bilateral weakness on 0400 assessment, not appreciated specifically on left side. Patient requesting Methadone NETO, informed her it is not available until 0900. VSS throughout shift with SBP in 90s, MAP >65. Good UOP via moody cath. IV site - left EJ, C/D/I and patent with IV fluids infusing. Patient states she is starting to feel sick. No seizure activity noted during the shift. Call light in reach, patient able to make needs/concerns known.
[2020-02-18 08:26] VITALS: BP 96/56; PULSE 64; RESP 24; TEMP 36.8; O2SAT 98
[2020-02-18] MEDS: HEPARIN 5,000 UNIT/ML VIAL 5000 UNIT SUBCUT (08:35)
[2020-02-18] MEDS: METHADONE 10 MG TABLET 30 MG PO (08:36)
[2020-02-18] MEDS: TOPIRAMATE 100 MG TABLET PO (08:36)
--- NOTE | 2020-02-18 08:47 | CM.SWNOTE ---
BARREL LOADER AND CLEANER Note BARREL LO[employer]ER AND CLEANER consult received to complete LIZZETTE assessment for this 64 yo female, arrives via EMS after being found unresponsive in the BR at [facility]. According to notes, PMH includes seizure disorder and h/o craniotomy. Patient goes to [facility] for her daily Methodone, clinic records from [facility] indicate patient went to the clinic to refill her topiramate and patient endorsed to nursing staff that she took her methadone but was still feeling poorly so used heroin. Patient expected to be DC today according to RN Antonia. Needs [facility] transport back to [facility]. Met w/patient, introduced role. Patient in good spirits this morning. Patient lives in [facility], near [place]. She lives alone in a double wide trailer, has a dog, and states she is in the process of obtaining a [employer] cg, CM is Lucía, hours unknown at this time. Patient gets transportation down to [facility] M-F for her Methadone dose. Patient states she was going to [place] before that but lost her ride, and so had to rely on [facility] transport, which takes her to the nearest Methadone clinic (?) Patient denies current IVDU, this BARREL LOADER AND CLEANER asks what happened at [facility]? Patient states she cannot remember. Her last memory is going into the clinic and taking her Methadone dose. Patient does not share additional details about current and/or h/o IVDU, denies. patient is worried about her dog, states she has no children and no neighbors to assist her. Patient denies needs from this BARREL LOADER AND CLEANER, states she is retired and has all basic needs met; she has food stamps, has transportation and housing. BRITTNI Benton
--- NOTE | 2020-02-18 10:01 | PT.IIE ---
Surgical History (Last Reviewed 02/17/20 @ 22:37 by RUBEN Beebe) History of craniotomy Medical History (Last Reviewed 02/17/20 @ 22:37 by RUBEN Beebe) Hypothyroidism Opioid use disorder Seizure disorder Physical Therapy Inpatient Evaluation/Re-Eval M1 PT/OT-IP Prior Functional Status Start: 02/18/20 11:20 Freq: NEEDED Status: Active Protocol: Document 02/18/20 10:02 AB (Rec: 02/18/20 11:31 [facility] Medical Review Prior Functional Status Medical History Reviewed Yes Communication able to make needs known; pt a little sleepy and requires cues to stay awake but able to follow directions Mobility and Gait Pt stated that she is independent with all mobilities and ambulation without AD Social History Household Members none Living Arrangements RV Number of Floors (Floors) One Floor Number of Stairs To Enter/Railing? 3 steps B rails Home Environment Standard Height Toilet,Tub/ Shower Home Equipment Front Wheel Walker,Hand Held Shower,Grab Bars Near Toilet, Grab Bars In Shower M2 PT-IP Current Condition Start: 02/18/20 11:20 Freq: NEEDED Status: Active Protocol: Document 02/18/20 10:02 AB (Rec: 02/18/20 11:31 AB [id number]) Physical Therapy Current Condition Current Condition Evaluation Date 02/18/20 Treatment Diagnosis seizure d/o; difficulty in walking; weakness Onset Date Precautions Other Precautions falls M3 PT-IP Subjective Start: 02/18/20 11:20 Freq: NEEDED Status: Active Protocol: Document 02/18/20 10:02 AB (Rec: 02/18/20 11:31 AB [id number]) Subjective Physical Therapy Visit Type Type Initial Evaluation Visit Start Time 10:02 Visit Stop Time 10:40 Total Visit Minutes 38 Number of TANK SETTER HELPER Visits 0 Physical Therapy Visit Comments Patient Comments pt is agreeable to do PT Therapy Pain Assessment Pain When Pain Assessed At Rest Location Generalized Scale Used pain scale not stated Pain Management Techniques Distraction,Modification of Treatment,Timing of Activity with Medications M4 PT-IP Mobility and Gait Start: 02/18/20 11:20 Freq: NEEDED Status: Active Protocol: Document 02/18/20 10:02 AB (Rec: 02/18/20 11:31 AB [id number]) PT-Bed Mobility Assessment Supine to Sit Supine to Sit Standby Assistance PT-Transfer Assessment Sit to and From Stand Sit to and from Stand Standby Assistance Equipment Transfer Assistive Device Gait Belt,Front Wheeled Walker Transfers Transfer Destination Chair Transfer Technique Stand Step Pivot Transfer Ability Level of Assist Contact Guard Assistance,1 Person Assistance,Use of Upper Extremities Comments Mobility Comments pt completed supine to sit SBA . pt is very impulsive. completed sit to stand CGA and transferred to chair CGA. ambulated in room using FWW 30 ft CGA. presents with unsteady ataxic gait and pt has decrease safety awareness requiring cues to slow down. completed up/down step stool with bilateral rail supports CGA. sat back on chair. call light and table placed within reach. Gait Assessment Gait Gait Assistance Required: Contact Guard Assist Distance (Feet) 30 Able to Maintain Weight Bearing Status Yes During Gait Assistive Devices Assistive Device Gait Belt,Front Wheeled Walker Orthotic/Prosthetic Devices or Brace: No Gait Deviations General Gait Pattern Ataxic,Decreased Stride Length ,Decreased Feet Clearance Factors Limiting Gait Function Factors Limiting Gait Function Decreased Activity Tolerance, Decreased Strength,Poor Balance,Poor Safety Awareness Stair Climbing Assessment Evaluation Level of Assist On Stairs Contact Guard Assistance Devices Stair Climbing Assistive Devices Left Railing,Right Railing Technique/Endurance Stair Climbing Direction Ascend and Descend Stair Climbing Technique Step to Step Number of Steps Climbed 1 Query Text: Stair Climbing Set # Repetitions (reps) 2 PT-Balance Assessment Sitting Balance and Reactions Static Sitting Balance Ability Good Dynamic Sitting Balance Ability Good Standing Balance and Reactions Static Standing Balance Ability Fair Dynamic Standing Balance Ability Fair Device Used using fWW M5 PT-IP Objective Assessments Start: 02/18/20 11:20 Freq: NEEDED Status: Active Protocol: Document 02/18/20 10:02 AB (Rec: 02/18/20 11:31 AB [id number]) Orientation Orientation/Cognition Level of Alertness Alert Orientation Name Safety Awareness Decreased Safety Awareness Memory Description Short Term Impaired Gross Range of Motion Lower Extremity ROM Assessment Within Functional Limits Strength Lower Extremity Strength Hip 4-/5 Knee 4-/5 Muscle Tone Muscle Tone WNL Yes M6 PT-IP Treatment Start: 02/18/20 11:20 Freq: NEEDED Status: Active Protocol: Document 02/18/20 10:02 AB (Rec: 02/18/20 11:31 AB [email or web address]) Physical Therapy Treatment Education Education Provided Safety M7 PT-IP Assessment and Plan Start: 02/18/20 11:20 Freq: NEEDED Status: Active Protocol: Document 02/18/20 10:02 AB (Rec: 02/18/20 11:31 AB [id number]) PT Summary Assessment and Plan Potential Rehabilitation Potential Fair Status of Condition at Evaluation Stable Summary Impairments Pain,ROM,Strength,Balance, Coordination,Sensation,Tone, Cognition,Bed Mobility, Transfers,Gait,Activity Tolerance Assessment Summary pt requiring CGA with mobility but with decrease activity tolerance and decrease safety awareness affecting independence. Recommending use of FWW at this time for safety and pt agreed. stated that she has one at home that she can use. pt will require HHPT to improve strength, balance and safety awareness Goals Bed Mobility Goal Independent Transfer Goal Independent,Front Wheeled Walker Gait Goal Independent,Front Wheel Walker Gait Distance 200 Other Goals ambulation without AD SBA 200 ft up/down 3 steps B rails mod I Days to Meet Goals 5 Frequency of Treatment Frequency Of Treatment Once a Day Treatment Plan Physical Therapy Treatment Plan Bed Mobility Training,Transfer Training,Gait Training, Therapeutic Exercise,Balance Retraining,Discharge Planning, Neuromuscular Re-ed, Coordination Retraining,Manual Therapy Recommendations To Nursing Amount of Assist Needed 1 Person Assist Discharge Recommendations PT Discharge Recommendations Home with Assistance,Home Health Transportation Needs at Discharge Private Vehicle
--- NOTE | 2020-02-18 11:24 | CM.DPC ---
DCP Cont: Patient has discharge orders today. BRITTNI Jason, performed initial assessment. Patient does have Medicaid, lives in [place], and has no transportation. Was able to call [facility], which operates under Medicaid, and set up transport for fern picker at 1300 by ER entrance. Gave them her address in [place], as well as Medicaid number. Updated nurse, Antonia, who will have patient at ER entrance at 1300. P: Patient is discharging home today. Lori Stockton RN/Welding Teacher
--- NOTE | 2020-02-18 12:23 | P.DS_ITS ---
History of Present Illness History of Present Illness Date Patient Seen: 02/18/20 Time Patient Seen: 12:23 Chief complaint: Unresponsive Narrative: As per RUBEN Beebe: Ms. Fide Oconnor is a 64-year-old female with a past medical history for opiate use disorder, seizure disorder and hypothyroidism who was brought into the ER by EMS following being found down. The patient has no recollection of events of earlier today and is a poor historian with difficulty remaining during patient interview. The patient was at the [facility] and reportedly received her daily methadone dose of 30 mg. Patient subsequently to the bathroom where she was found unresponsive with a history of continuing heroin use. CPR was initiated for an estimated 90 seconds and 2 doses 0.4 mg Narcan administered prior to arrival of EMS at which time the patient became agitated and combative. While in the ER the patient developed a another grand mal seizure and initially received 5 mg IM Versed lacking a patent IV due to IVDA. The patient continued disease therefore a right IJ IV was started and 2 mg mg of Versed administered IV with cessation of seizure activity. 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 The patient provides a variable history to different providers telling 1 she last injected heroin 2 days ago and telling another that she injected heroin and took her methadone today. She further adds that she has not taken her topiramate for 8 days but is unable to state why or who provides her medication, she states she ran out. ER documentation notes 1 seizure yesterday and 4 seizures today. The patient states she smokes a few cigarettes a day and drinks occasional alcohol. The patient denies recent illness cold or flu symptoms and has no known COVID-19 exposures. She denies headaches, dizziness or diplopia. She denies nasal congestion or sore throat. She complains of marked anterior chest wall pain a fter CPR. She denies abdominal pain, nausea vomiting or changes in bowel or bladder habits. Upon arrival to the ER the patient has temperature of 98.7?, heart rate of 81, blood pressure 91/50, respirations of 22 saturating 100% on 4 L nasal cannula. A chest x-ray is obtained which finds mild central pulmonary vascular prominence but no opacities and no pneumothorax. X-ray of the right forearm finds no fractures or dislocations or osseous abnormality. Twelve lead EKG finds sinus rhythm at a rate of 80 without ectopy or block, no ST or T-wave changes or evidence of infarct. On laboratory analysis the patient has white count of 8.5, hemoglobin of 11.4, hematocrit of 32.4 and platelets of 70. On chemistry she has hyponatremic at 1:28 a.m. and has a BUN of 41 with a creatinine 1.59 for an EGFR 32.9. Her nonfasting glucose is 122. Her magnesium is 1.8. Liver panel finds a total bilirubin is 0.5, AST of 416, ALT of 120 and alkaline phosphatase of 87. Her albumin level is 3.7. Procalcitonin is elevated at 5.25. On urinalysis she has a specific gravity of 1.030, positive protein and blood but negative leukocyte esterase nitrites WBCs and bacteria. While in the ER the patient rece ived 2 doses of Versed, lorazepam 0.5 mg Keppra 500 mg Zofran 4 mg and 2 L normal saline in normal saline 150 cc/hour. The patient is admitted to the medicine service for multiple seizures today. Discharge Providers Provider Date of admission: 02/17/20 16:19 Discharge Date: 02/18/20 Consults: 02/17/20 20:12 Consult to Discharge Planning Routine Comment: Consult to Physical Therapy Evaluate & Treat Comment: Physician Instructions: Evaluate and Treat 02/17/20 20:16 Consult to CHEMICAL PROCESSING EQUIPMENT REPAIRER - Drug Coordinator Routine Comment: CHEMICAL PROCESSING EQUIPMENT REPAIRER Consult: [facility] Need Behavioral Health Assess Discharge provider: Celestine Roldan DO Summary Hospital Course Discharge Diagnosis: 1. Seizure disorder with multiple seizures, not status epilepticus, chronic, present on admission, active 2. acute heroin overdose on chronic opiate use disorder, present on admission, active. 3. Acute dehydration, present on admission, resolved 4. Elevated transaminase, acute, present on admission, improved 5. Hypothyroidism, chronic, stable. 6. Medical nonadherence. 7. Hyponatremia, acute on chronic, present on admission. 8. Acute renal failure, present on admission, improved. Hospital Course: This is a 64-year-old female with a past medical history significant for opiate use disorder, seizure disorder hypothyroidism who was at her methadone clinic where she was found down and unresponsive. CPR was initiated with administration Narcan with the patient waking too agitated and combative. Patient endorsed receiving her methadone and using heroin and had not taken her seizure medication for 8 days. She had had multiple seizures the day of admission. Patient was given Keppra 500 mg in the emergency room and resumed on her home topiramate. Imaging did not reveal evidence of fracture. She had no evidence of seizure activity over the course of her observation. Infectious workup was unremarkable except for an elevated procalcitonin. Initial labs showed a markedly elevated AST level, a creatinine of 2.1, hyponatremia with a sodium of 129. All of these were likely elevated in the setting of acute dehydration and seizure activity and improved with continued fluids. She had an elevated proBNP, but on the morning after admission denied complaints of shortness of breath or dyspnea on exertion. This is likely elevated in the setting of her cirrhosis and volume overload as well as noncompliance with her home diuretics. Hepatitis serologies were sent and are currently pending at the time of discharge. She was discharged home with recommendation to follow up with her PCP next week. Status at Discharge Cognitive/behavioral status at discharge: oriented Functional status at discharge: independent ambulation Exam Vital Signs (past 8 hours): - 02/18/20 04:30 02/18/20 08:26 Temperature 96.9 F L 98.2 F Pulse Rate 63 64 Respiratory Rate 15 24 Blood Pressure 94/52 L 96/56 L Pulse Oximetry 99 98 Oxygen Delivery Method Room Air Oxygen Flow Rate 2 Narrative Exam Narrative: GENERAL APPEARANCE: well developed, adequately nourished, unkempt, awake and alert. HEENT: Contusion right [place], PERRLA, sluggish, conjunctiva clear, sclera nonicteric EOMs intact without nystagmus, no sinus tenderness to percussion, no rhinorrhea or epistaxis, mucous membranes are and tongue are dry and pink without lesions or exudate. NECK/THYROID: neck supple, no step-offs, no palpable muscle spasms, no JVD, no carotid bruit, no thyromegaly, trachea midline. LYMPH NODES: no cervical or supraclavicular lymphadenopathy. SKIN: [place], warm and dry, multiple track wallis, small firm nodule right ventral forearm nontender, multiple bruises in various stages of healing, abrasion and tibial tubercle appears older without bleeding, firm nontender area right hip without redness, no evidence of cellulitis HEART: regular rate and rhythm, S1-S2, no murmur, no rubs or gallops, brisk capillary refill. LUNGS: clear to auscultation bilaterally, no coarseness crackles or wheezing, no cough present CHEST: Symmetrical movement, no accessory muscle use, shallow tidal volume, marked anterior chest wall pain on AP compression. ABDOMEN: Soft, dull to percussion, no distention, no epigastric or abdominal tenderness, no organomegaly, no flank or suprapubic tenderness, active bowel tones. BACK: Normal curvature, nontender to palpation. EXTREMITIES: Preserved range of motion in all extremities. RUE swelling and LLE swelling without tenderness. NEUROLOGIC: AAO to person place and time, cranial nerves II-XII grossly intact, sensation intact to light touch, hearing grossly normal to speech. PSYCH: cooperative, stable behavior. Objective Labs Result Diagrams: 02/18/20 04:15 02/18/20 04:15 Labs: Laboratory Results - last 24 hr 02/17/20 02/17/20 02/17/20 13:45 13:45 13:45 WBC 15.6 H RBC 4.11 Hgb 12.8 Hct 37.5 MCV 91.3 MCH 31.2 MCHC 34.2 RDW 14.0 Plt Count 128 L Neut % (Auto) 74.3 Lymph % (Auto) 16.6 L Davison % (Auto) 8.1 Eos % (Auto) 0.2 L Baso % (Auto) 0.8 Neut # (Auto) 85291 H Lymph # (Auto) 2600 Davison # (Auto) 1300 H Eos # (Auto) 0 Baso # (Auto) 100 Sodium 129 L Potassium 4.3 Chloride 96 L Carbon Dioxide 17 L BUN 43 H Creatinine 2.01 H Estimated GFR 25.1 L BUN/Creatinine Ratio 21.4 Glucose 135 H Lactate Calcium 9.2 Magnesium 1.8 Total Bilirubin 1.1 Conjugated Bilirubin Unconjugated Bilirubin AST 500 H ALT 130 H Alkaline Phosphatase 101 NT-Pro-B Natriuret Pep Total Protein 8.6 H Albumin 4.9 Globulin 3.7 Albumin/Globulin Ratio 1.3 Procalcitonin TSH 2.91 Free T4 1.40 Urine Color Urine Appearance Urine pH Ur Specific Slaughters Urine Protein Urine Glucose (UA) Urine Ketones Urine Occult Blood Urine Nitrate Urine Bilirubin Urine Urobilinogen Ur Leukocyte Esterase Urine RBC Urine WBC Ur Squamous Epith Cells Amorphous Sediment Urine Bacteria Ur Culture Indicated? Nasal Screen MRSA (PCR) Salicylates U Opiates 300ng/mL cut Ur Oxycodone Screen Urine Methadone Screen Acetaminophen Ur Barbiturates Screen U Tricyclic Antidepress Ur Phencyclidine Scrn Ur Amphetamines Screen U Methamphetamines Scrn Ur MDMA Scrn (Ecstasy) U Benzodiazepines Scrn Urine Cocaine Screen U Marijuana (THC) Screen Ethyl Alcohol COVID-19 PCR 02/17/20 02/17/20 02/17/20 14:19 14:19 15:04 WBC RBC Hgb Hct MCV MCH MCHC RDW Plt Count Neut % (Auto) Lymph % (Auto) Davison % (Auto) Eos % (Auto) Baso % (Auto) Neut # (Auto) Lymph # (Auto) Davison # (Auto) Eos # (Auto) Baso # (Auto) Sodium Potassium Chloride Carbon Dioxide BUN Creatinine Estimated GFR BUN/Creatinine Ratio Glucose Lactate Calcium Magnesium Total Bilirubin Conjugated Bilirubin Unconjugated Bilirubin AST ALT Alkaline Phosphatase NT-Pro-B Natriuret Pep Total Protein Albumin Globulin Albumin/Globulin Ratio Procalcitonin TSH Free T4 Urine Color Yellow Urine Appearance Clear Urine pH 5.0 Ur Specific Slaughters >=1.030 H Urine Protein 1+ H Urine Glucose (UA) Negative Urine Ketones Negative Urine Occult Blood 3+ H Urine Nitrate Negative Urine Bilirubin Negative Urine Urobilinogen 0.2 Ur Leukocyte Esterase Negative Urine RBC 5-10/hpf H Urine WBC 0-1/hpf Ur Squamous Epith Cells 0-1 /hpf Amorphous Sediment 3+ Urine Bacteria None seen Ur Culture Indicated? Specimen cultured Nasal Screen MRSA (PCR) Salicylates U Opiates 300ng/mL cut Positive H Ur Oxycodone Screen Negative Urine Methadone Screen Negative Acetaminophen Ur Barbiturates Screen Negative U Tricyclic Antidepress Negative Ur Phencyclidine Scrn Negative Ur Amphetamines Screen Negative U Methamphetamines Scrn Negative Ur MDMA Scrn (Ecstasy) Negative U Benzodiazepines Scrn Negative Urine Cocaine Screen Negative U Marijuana (THC) Screen Negative Ethyl Alcohol COVID-19 PCR Negative 02/17/20 02/17/20 02/17/20 16:25 16:25 16:50 WBC 8.5 RBC 3.56 L Hgb 11.4 L Hct 32.4 L MCV 91.1 MCH 31.9 MCHC 35.1 RDW 13.9 Plt Count 70 L Neut % (Auto) 84.3 H Lymph % (Auto) 10.2 L Davison % (Auto) 5.2 Eos % (Auto) 0.2 L Baso % (Auto) 0.1 Neut # (Auto) 7200 H Lymph # (Auto) 900 L Davison # (Auto) 400 Eos # (Auto) 0 Baso # (Auto) 0 Sodium 128 L Potassium 4.3 Chloride 99 Carbon Dioxide 25 BUN 41 H Creatinine 1.59 H Estimated GFR 32.9 L BUN/Creatinine Ratio 25.8 H Glucose 122 H Lactate Calcium 8.1 L Magnesium Total Bilirubin 0.7 Conjugated Bilirubin 0.0 Unconjugated Bilirubin 0.5 AST 416 H ALT 120 H Alkaline Phosphatase 87 NT-Pro-B Natriuret Pep Total Protein 6.7 Albumin 3.7 Globulin 3.0 Albumin/Globulin Ratio 1.2 Procalcitonin 5.25 H TSH Free T4 Urine Color Urine Appearance Urine pH Ur Specific Slaughters Urine Protein Urine Glucose (UA) Urine Ketones Urine Occult Blood Urine Nitrate Urine Bilirubin Urine Urobilinogen Ur Leukocyte Esterase Urine RBC Urine WBC Ur Squamous Epith Cells Amorphous Sediment Urine Bacteria Ur Culture Indicated? Nasal Screen MRSA (PCR) Salicylates < 1.0 U Opiates 300ng/mL cut Ur Oxycodone Screen Urine Methadone Screen Acetaminophen < 10 L Ur Barbiturates Screen U Tricyclic Antidepress Ur Phencyclidine Scrn Ur Amphetamines Screen U Methamphetamines Scrn Ur MDMA Scrn (Ecstasy) U Benzodiazepines Scrn Urine Cocaine Screen U Marijuana (THC) Screen Ethyl Alcohol < 10 COVID-19 PCR 02/17/20 02/17/20 02/17/20 17:00 18:15 19:40 WBC RBC Hgb Hct MCV MCH MCHC RDW Plt Count Neut % (Auto) Lymph % (Auto) Davison % (Auto) Eos % (Auto) Baso % (Auto) Neut # (Auto) Lymph # (Auto) Davison # (Auto) Eos # (Auto) Baso # (Auto) Sodium Potassium Chloride Carbon Dioxide BUN Creatinine Estimated GFR BUN/Creatinine Ratio Glucose Lactate 0.8 Calcium Magnesium Total Bilirubin Conjugated Bilirubin Unconjugated Bilirubin AST ALT Alkaline Phosphatase NT-Pro-B Natriuret Pep Total Protein Albumin Globulin Albumin/Globulin Ratio Procalcitonin TSH Free T4 Urine Color Urine Appearance Urine pH Ur Specific Slaughters Urine Protein Urine Glucose (UA) Urine Ketones Urine Occult Blood Urine Nitrate Urine Bilirubin Urine Urobilinogen Ur Leukocyte Esterase Urine RBC Urine WBC Ur Squamous Epith Cells Amorphous Sediment Urine Bacteria Ur Culture Indicated? Nasal Screen MRSA (PCR) Positive for mrsa H Salicylates U Opiates 300ng/mL cut Positive H Ur Oxycodone Screen Negative Urine Methadone Screen Positive H Acetaminophen Ur Barbiturates Screen Negative U Tricyclic Antidepress Negative Ur Phencyclidine Scrn Negative Ur Amphetamines Screen Negative U Methamphetamines Scrn Negative Ur MDMA Scrn (Ecstasy) Negative U Benzodiazepines Scrn Positive H Urine Cocaine Screen Negative U Marijuana (THC) Screen Negative Ethyl Alcohol COVID-19 PCR 02/18/20 02/18/20 04:15 04:15 WBC 6.1 RBC 3.43 L Hgb 10.9 L Hct 31.5 L MCV 91.9 MCH 31.8 MCHC 34.6 RDW 14.3 Plt Count 68 L Neut % (Auto) 61.6 D Lymph % (Auto) 28.1 Davison % (Auto) 7.5 Eos % (Auto) 1.5 L Baso % (Auto) 1.3 Neut # (Auto) 3700 Lymph # (Auto) 1700 Davison # (Auto) 500 Eos # (Auto) 100 Baso # (Auto) 100 Sodium 130 L Potassium 4.4 Chloride 103 Carbon Dioxide 27 BUN 37 H Creatinine 1.13 H Estimated GFR 48.8 L BUN/Creatinine Ratio 32.7 H Glucose 94 Lactate Calcium 8.7 Magnesium Total Bilirubin 1.0 Conjugated Bilirubin Unconjugated Bilirubin AST 390 H ALT 125 H Alkaline Phosphatase 68 NT-Pro-B Natriuret Pep 3050 H Total Protein 6.7 Albumin 3.6 Globulin 3.1 Albumin/Globulin Ratio 1.2 Procalcitonin TSH Free T4 Urine Color Urine Appearance Urine pH Ur Specific Slaughters Urine Protein Urine Glucose (UA) Urine Ketones Urine Occult Blood Urine Nitrate Urine Bilirubin Urine Urobilinogen Ur Leukocyte Esterase Urine RBC Urine WBC Ur Squamous Epith Cells Amorphous Sediment Urine Bacteria Ur Culture Indicated? Nasal Screen MRSA (PCR) Salicylates U Opiates 300ng/mL cut Ur Oxycodone Screen Urine Methadone Screen Acetaminophen Ur Barbiturates Screen U Tricyclic Antidepress Ur Phencyclidine Scrn Ur Amphetamines Screen U Methamphetamines Scrn Ur MDMA Scrn (Ecstasy) U Benzodiazepines Scrn Urine Cocaine Screen U Marijuana (THC) Screen Ethyl Alcohol COVID-19 PCR PFSH Medical History Hypothyroidism Opioid use disorder Seizure disorder Surgical History History of craniotomy Family History Father Hypertension Mother Emphysema lung Smoker Social History household members: none Smoking Status: Current every day smoker alcohol intake: former Discharge Plan Discharge Plan Patient Disposition: Home Provider Discharge Comment: You were admitted to the hospital after having some seizures due to you running out of your medications. Please continue your medications at home and try to stop illicit drug use as well. Continue methadone. Please also continue your lasix and aldactone medications. Please follow up with your PMD as soon as possible. Discharge orders & Medications Prescriptions: Continued methadone 10 mg Tablet 30 mg PO DAILY RF: 0 furosemide 20 mg Tablet 20 mg PO DAILY RF: 0 spironolactone 25 mg Tablet 25 mg PO DAILY RF: 0 levothyroxine 75 mcg Tablet 75 mcg PO DAILY RF: 0 topiramate 100 mg Tablet 100 mg PO BID RF: 0 Diet/Activity/Treatments Diet: Diet as Tolerated Activity: As tolerated Discharge Data Attending Provider: Angelique Marino VTE Deep Vein Thrombosis/Pulmonary Embolism Present on Admission: No
--- NOTE | 2020-02-18 13:06 | PC.NURSE ---
PT AWAKE AND QUESTIONING HER WHERE-ABOUTS, LUNGS CLEAR IV RIGHT NECK INFUSING NS @ 100CC/H- MULT SCABS/ABRASIONS OVER ENTIRE BODY INCLUDING RIGHT HIP- TAKING PO METHADONE PER HOME RX WELL TOPIMAX - SHE DECLINES TAKING ANY THYROID RX- PREPARED TO DISCHARGE - REVIEWED PLAN WITH HER AND GIVEN ALL OF HER LOCKED UP BELONGINGS INCLUDING LOCK BOX AND HER RX- TRANSPORTED VIA WHEELCHAIR TO AWAITING CAB TO TRANSPORT TO HOME IN [place]
--- NOTE | 2020-02-18 16:11 | PC.NURSE ---
Pt belongings bag containing coat was found in room post D/C by housekeeping. No phone number listed in chart to contact pt. Bag sent to lost and found.
[2020-02-28 13:30] LABS: HBsAg Screen NEGATIVE; Hepatitis B Core Antibody IgM NEGATIVE
[2020-02-28 13:31] LABS: Hepatitis A Antibody IgM NEGATIVE
[2020-02-28 13:43] LABS: Hepatitis C Antibody >11.0
== END 2020-02-18 13:05 | disposition home or self-care (01) ==
LOC: ED 16:19 → AC 16:20 → ICU 17:34
PROVIDERS: Nurse Practitioner Adult Health; Admitting Provider Internal Medicine; Emergency Provider Emergency Medicine; Visit Provider Internal Medicine
DX: T40.1X2A Poisoning by heroin, intentional self-harm, initial encounter (principal); G40.909 Epilepsy, unspecified, not intractable, without status epilepticus; T42.6X6A Underdosing of other antiepileptic and sedative-hypnotic drugs, initial encounter; Z91.128 Patient's intentional underdosing of medication regimen for other reason; Z91.19 Patient's noncompliance with other medical treatment and regimen; G83.84 Todd's paralysis (postepileptic); E86.0 Dehydration; R74.01 Elevation of levels of liver transaminase levels; E03.9 Hypothyroidism, unspecified; R41.82 Altered mental status, unspecified; E87.1 Hypo-osmolality and hyponatremia; N17.9 Acute kidney failure, unspecified; F17.210 Nicotine dependence, cigarettes, uncomplicated; Z11.59 Encounter for screening for other viral diseases
CPT/HCPCS: 36415; 51701; 71045; 73090; 80053; 80074; 80076; 80305; 80320; 80329; 81001; 83605; 83735; 83880; 84145; 84439; 84443; 85025; 87040; 87086; 87522; 87635; 87797; 93005; 96361; 96365; 96372; 96375; 97116; 97161; 99284; 99291; G0378; G0480; J1644; J1953; J2250

== ENCOUNTER 2020-10-22 08:38 | Emergency (ER) | payer OTHER, MEDICAID, SELFPAY ==
[2020-02-17 17:51] VITALS: BMI 26.4
[2020-10-22] VITALS (7 sets, daily range): BP systolic 156–162; BP diastolic 87–88; PULSE 80–108; RESP 14–36; TEMP 36.7; O2SAT 98–100
--- NOTE | 2020-10-22 08:46 | ED.GENADULT ---
HPI - General Adult General Chief complaint: Chest Pain Stated complaint: Pain all over Time Seen by Provider: 10/22/20 08:44 Source: patient and EMS Mode of arrival: EMS History of Present Illness HPI narrative: Patient is a 64-year-old female. History of hypothyroidism and also drug abuse. Was brought to the emergency department by EMS after they were called by her methadone clinic. She has paperwork with her stating that she was seen at an outside facility and discharged within the past 12 hours. She was seen for chest discomfort. EMS reports that they were told that the patient had used meth within the time that she was discharged from this other facility and arrival to her methadone Clinic. The patient denies this. They were called by the methadone clinic because the patient was describing chest discomfort. She had an EKG performed that was unremarkable but because she was having symptoms and because she was ?somnolent ?she was brought to the emergency department for evaluation. Patient stated that she was not at any Hospital last night. She does describe chest discomfort. Related Data Home Medications Medication Instructions Recorded Confirmed furosemide 20 mg tablet 20 mg PO DAILY 02/17/20 02/17/20 levothyroxine 75 mcg tablet 75 mcg PO DAILY 02/17/20 02/17/20 methadone 10 mg tablet 30 mg PO DAILY 02/17/20 02/17/20 spironolactone 25 mg tablet 25 mg PO DAILY 02/17/20 02/17/20 topiramate 100 mg tablet 100 mg PO BID 02/17/20 02/17/20 Allergies Allergy/AdvReac Type Severity Reaction Status Date / Time codeine Allergy Mild Rash Verified 02/17/20 18:20 clindamycin AdvReac Intermediate Agitated Verified 02/17/20 18:20 Review of Systems Constitutional Constitutional: Denies fever(s) Cardiovascular Cardiovascular: Reports as per HPI Respiratory Respiratory: Reports system reviewed and no additional complaints, except as documented Gastrointestinal Gastrointestinal: Reports system reviewed and no additional complaints, except as documented Musculoskeletal Musculoskeletal: Reports system reviewed and no additional complaints, except as documented Integumentary/Breasts Skin/Breast: Reports system reviewed and no additional complaints, except as documented Neurologic Comments: Somnolence Psychiatric Psychiatric: Reports system reviewed and no additional complaints, except as documented Hematologic/Lymphatic On Anticoagulants: No Patient History Medical History Hypothyroidism Opioid use disorder Seizure disorder Surgical History History of craniotomy Family History Father Hypertension Mother Emphysema lung Smoker Social History household members: none Smoking Status: Current every day smoker alcohol intake: former Smoking Status: Current every day smoker Substance Use Type: heroin and IV drugs Exam Initial Vital Signs Initial Vital Signs: Vital Signs Pulse Rate 88 10/22/20 08:40 Respiratory Rate 16 10/22/20 08:40 Blood Pressure 162/88 H 10/22/20 08:40 Pulse Oximetry 100 10/22/20 08:40 Const General: cooperative, disheveled, intoxicated appearing and lethargic HENMT Head: normal to inspection and normocephalic Eyes Pupils: PERRL Other: 3 mm equal bilateral pupils Resp Effort & Inspection: normal respiratory effort Auscultation: clear to auscultation bilaterally Cardio Rate: regular rate Rhythm: regular rhythm GI Inspection: normal to inspection Palpation: soft Skin General: no rashes or lesions noted Neuro General: patient alert, patient awake and moves all extremities Extrem General: normal to inspection and capillary refill normal Psych Appearance: disheveled Course Orders Ordered: ED Orders 10/22/20 08:45 XR chest 1V Stat EKG-12 Lead Stat 10/22/20 10:05 Complete Blood Count AUTO DIFF Stat Comprehensive Metabolic Panel Stat Ethanol (ETOH) Stat Lipase Stat Thyroid Stimulating Hormone Stat Troponin & CK Cardiac Panel Stat Sodium Chloride (Normal Saline 0.9%) 1,000 mls @ 125 mls/hr IV CONT WENCESLAO Last Admin: 10/22/20 11:23 Dose: Not Given Documented by: RAISON Discontinued Medications Lorazepam (Lorazepam 0.5 Mg Tablet) 1 mg PO NOW ONE Stop: 10/22/20 11:34 Vital Signs Vital signs: Vital Signs - 8 hr 10/22/20 08:40 10/22/20 09:18 10/22/20 10:19 Temperature 98.1 F Pulse Rate 88 80 Respiratory Rate 16 23 Blood Pressure 162/88 H Pulse Oximetry 100 10/22/20 10:51 10/22/20 11:00 10/22/20 11:22 Temperature Pulse Rate 108 H 91 H 81 Respiratory Rate 36 H 18 17 Blood Pressure 156/87 H Pulse Oximetry 99 98 10/22/20 11:30 Temperature Pulse Rate 82 Respiratory Rate 14 Blood Pressure Pulse Oximetry 100 Medical Decision Making Lab Data Lab results reviewed: Yes I reviewed the patient's lab results. Result diagrams: 10/22/20 10:05 10/22/20 10:05 Labs: Lab Results 10/22/20 10/22/20 10/22/20 Range/Units 10:05 10:05 10:05 WBC 2.5 L (4.5-11.0) X10^3/uL RBC 3.95 L (4.0-5.2) X10^6/uL Hgb 12.8 (12.0-16.0) g/dL Hct 36.4 (36-46) % MCV 92.3 (80-100) fL MCH 32.5 (26-34) PG MCHC 35.2 (30-36) % RDW 13.9 (11.6-14.8) % Plt Count 74 L (150-400) X10^3/uL Neut % (Auto) 54.4 (50-75) % Lymph % (Auto) 36.5 (25-40) % Gray % (Auto) 6.2 (3-14) % Eos % (Auto) 1.8 L (2-4) % Baso % (Auto) 1.1 (0-2) % Neut # (Auto) 1400 L (5181-1024) /uL Lymph # (Auto) 900 L (2585-0745) /uL Gray # (Auto) 200 (0-900) /uL Eos # (Auto) 0 (0-450) /uL Baso # (Auto) 0 (0-100) /uL Sodium 138 (137-145) mmol/L Potassium 3.4 (3.4-5.1) mmol/L Chloride 107 (98-107) mmol/L Carbon Dioxide 23 (22-32) mmol/L BUN 10 (7-17) mg/dL Creatinine 0.91 (0.52-1.04) mg/dL Estimated GFR > 60.0 (>60) mL/min BUN/Creatinine Ratio 11.0 (6-22) Glucose 77 L (80-110) mg/dL Calcium 9.4 (8.4-10.2) mg/dL Total Bilirubin 0.6 (0.2-1.3) mg/dL AST 25 (14-36) IU/L ALT 17 (<35) IU/L Alkaline Phosphatase 68 (38-126) U/L Total Creatine Kinase 50 (30-135) U/L CK-MB (CK-2) TNP CK-MB (CK-2) Rel Index TNP Troponin I < 0.012 (0.01-0.034) ng/mL Total Protein 7.2 (6.3-8.2) g/dL Albumin 4.1 (3.5-5.0) g/dL Globulin 3.1 (1.7-4.1) g/dL Albumin/Globulin Ratio 1.3 (1.0-2.8) Lipase 64 (23-300) U/L TSH 5.15 H (0.47-4.68) uIU/mL Ethyl Alcohol < 10 ( - 10) mg/dL Urine Dip Bedside Urine Glucose Negative Bedside Urine Bilirubin - Negative Bedside Urine Ketone - Negative Urine Specific [place] 1.010 Bedside Urine Occult Blood - Negative Bedside Urine pH 7.0 Bedside Urine Protein - Negative Bedside Urine Urobilinogen - Negative Bedside Urine Nitrite - Negative Bedside Urine Leukocytes - Negative Esterase Point of care testing: Urine Dip Bedside Urine Glucose Negative Bedside Urine Bilirubin - Negative Bedside Urine Ketone - Negative Urine Specific [place] 1.010 Bedside Urine Occult Blood - Negative Bedside Urine pH 7.0 Bedside Urine Protein - Negative Bedside Urine Urobilinogen - Negative Bedside Urine Nitrite - Negative Bedside Urine Leukocytes - Negative Esterase Imaging Data Chest x-ray: Radiologist's Impression: [address] [id number] ReportSigned Patient: Fide Oconnor [facility]#: [id number]: 8Acct:[id number]/Sex: 64 / FDate of Service: 10/22/20Loc: EDAccession Number: [id number] Procedure: XR chest 1V Ordering Provider: Cesar Snowden D.O. PROCEDURE: XR CHEST 1V INDICATIONS: chest pain TECHNIQUE: One view of the chest was acquired. COMPARISON: [facility], , XR CHEST 1V, 02/17/2020, 13:30. FINDINGS: Surgical changes and devices: None. Lungs and pleura: Lungs are clear. No pleural effusions or pneumothorax. Mediastinum: Mediastinal contours appear normal. Heart size is normal. Bones and chest wall: No suspicious bony lesions. Overlying soft tissues appear unremarkable. Probable Hill-Sachs deformity of the left humeral head. There is superior migration of the left humeral head and ill-defined sclerosis and lucency. IMPRESSION: 1. No acute cardiopulmonary disease. 2. Possible Hill-Sachs deformity of the humeral head. Recommend clinical correlation for history of left shoulder dislocation. There is superior migration of the left humeral head which may be related to rotator cuff tendon tear. Ill-defined sclerosis and lucency of the left humeral head is noted, possibly related to old fracture. If clinically indicated, a nonurgent shoulder MRI is recommended. Dictated by: Kervin Lawson M.D. on 10/22/2020 at 9:07 Approved by: Kervin Lawson M.D. on 10/22/2020 at 9:11 ECG Data Attestation: I personally reviewed and interpreted this ECG as follows: Interpretation: Sinus rhythm Ventricular rate 85 Normal axis Normal QRS Normal QTC Nonspecific ST T wave changes Repeat EKG Sinus rhythm Ventricular rate 81 Normal axis Normal QRS Normal QTC Unchanged from previous EKG MDM Narrative Medical decision making narrative: Patient's lab work today is unremarkable. EKGs are unremarkable. This is consistent with her visit from the outside facility earlier today. I was able to review these notes. Patient did a appear to be intoxicated/high upon arrival. I suspect that this is the cause of her symptoms. She is also having quite a bit of anxiety. She was given 1 mg of Ativan here in the ER. Informed her that I would not be sending her home with a prescription for this and this needed to come from her primary doctor. No further workup needed in the emergency department. She was given return precautions. Discharge Plan Departure Patient Disposition: Home Clinical Impression: Anxiety, Atypical chest pain Instructions: DI for Anxiety -- Adult Activity Restrictions/Additional Instructions: Your workup here in this emergency department and the workup from when you were at [facility] in [place] within the past 12 hours are both very reassuring. You do need to establish care with your primary doctor as long-term anxiety medications would need to come from this type of a provider. For primary doctor in this area you can contact [phone]. Continue all of your medications as directed. Prescriptions: No Action methadone 10 mg Tablet 30 mg PO DAILY RF: 0 furosemide 20 mg Tablet 20 mg PO DAILY RF: 0 spironolactone 25 mg Tablet 25 mg PO DAILY RF: 0 levothyroxine 75 mcg Tablet 75 mcg PO DAILY RF: 0 topiramate 100 mg Tablet 100 mg PO BID RF: 0
--- NOTE | 2020-10-22 09:15 | PC.NURSE ---
Two RN attempted to locate good site for IV. Unable to obtain IV or blood. Lab called
--- NOTE | 2020-10-22 09:25 | PC.NURSE ---
Patient presents to ER appears exhausted. Patient having difficulty recalling nights events, maintaining airway and engages in conversation, however drifts to sleep easily when not talking. Patient reports some pain at her rectum its a long story but I have had a hard time going to the bathroom for years
[2020-10-22 10:14] LABS: Add Manual Diff / Slide Review NO; Basophils Absolute Auto 0 /uL (0-100); Basophils Percent Auto 1.1 % (0-2); Eosinophils Absolute Auto 0 /uL (0-450); Eosinophils Percent Auto 1.8 % (2-4); Hematocrit 36.4 % (36-46); Hemoglobin 12.8 g/dL (12.0-16.0); Lymphocytes Absolute Auto 900 /uL (1100-4500); Lymphocytes Percent Auto 36.5 % (25-40); Mean Corpuscular HGB Conc 35.2 % (30-36); Mean Corpuscular Hemoglobin 32.5 PG (26-34); Mean Corpuscular Volume 92.3 fL (80-100); Monocytes Absolute Auto 200 /uL (0-900); Monocytes Percent Auto 6.2 % (3-14); Neutrophils Absolute Auto 1400 /uL (1500-7000); Neutrophils Percent Auto 54.4 % (50-75); Platelet Count 74 X10^3/uL (150-400); Red Blood Cell Count 3.95 X10^6/uL (4.0-5.2); Red Cell Distribution Width 13.9 % (11.6-14.8); White Blood Cell Count 2.5 X10^3/uL (4.5-11.0)
[2020-10-22 10:25] LABS: Alanine Aminotransferase 17 IU/L (<35); Albumin 4.1 g/dL (3.5-5.0); Albumin Globulin Ratio 1.3 (1.0-2.8); Alkaline Phosphatase 68 U/L (38-126); Aspartate Aminotransferase 25 IU/L (14-36); Bilirubin Total 0.6 mg/dL (0.2-1.3); Blood Urea Nitrogen 10 mg/dL (7-17); Calcium 9.4 mg/dL (8.4-10.2); Carbon Dioxide 23 mmol/L (22-32); Chloride 107 mmol/L (98-107); Creatine Kinase 50 U/L (30-135); Estimated Glomerular Filt Rate > 60.0 mL/min (>60); Ethanol (ETOH) < 10 mg/dL; Globulin 3.1 g/dL (1.7-4.1); Glucose 77 mg/dL (80-110); HEMOLYSIS < 15 (0-50); Lipase 64 U/L (23-300); Potassium 3.4 mmol/L (3.4-5.1); Sodium 138 mmol/L (137-145); Total Protein 7.2 g/dL (6.3-8.2)
[2020-10-22 10:37] LABS: Troponin I < 0.012 ng/mL (0.01-0.034)
[2020-10-22 11:04] LABS: Thyroid Stimulating Hormone 5.15 uIU/mL (0.47-4.68)
[2020-10-22] MEDS: LORazepam 0.5 MG TABLET 1 MG PO (11:39)
== END 2020-10-22 12:17 | disposition home or self-care (01) ==
PROVIDERS: Emergency Provider Emergency Medicine
DX: F41.9 Anxiety disorder, unspecified (principal); R07.89 Other chest pain
CPT/HCPCS: 36415; 71045; 80053; 80320; 81003; 82550; 83690; 84443; 84484; 85025; 93005; 99283; 99284

== ENCOUNTER 2021-01-16 10:09 | Emergency (ER) | payer OTHER, MEDICAID, SELFPAY ==
[2020-02-17 17:51] VITALS: BMI 26.4
[2021-01-16] VITALS (16 sets, daily range): BP systolic 114–147; BP diastolic 54–93; PULSE 58–81; RESP 16–21; TEMP 36.4; O2SAT 93–100; BMI 25.9
[2021-01-16 10:46] LABS: COVID19 -Nasal RAPID Negative (Negative)
--- NOTE | 2021-01-16 10:49 | ED_ITS ---
HPI - General Adult General Chief complaint: Unresponsive Stated complaint: Unconscious-received narcan,waking up Time Seen by Provider: 01/16/21 10:14 Source: EMS Mode of arrival: EMS Limitations: altered mental status History of Present Illness HPI narrative: Patient is a 65-year-old female who is brought in by EMS after they were called to the methadone clinic for evaluation of the patient being unresponsive. She received 2 mg of intranasal Narcan by the clinic and another 2 mg IM approximately 10 minutes prior to arrival here in the emergency department by EMS. Both of these were for somnolence per patient unable to provide any HPI. He was reported by EMS they were told that her methadone dose this morning was her normal dose. Related Data Home Medications Medication Instructions Recorded Confirmed furosemide 20 mg tablet 20 mg PO DAILY 02/17/20 02/17/20 levothyroxine 75 mcg tablet 75 mcg PO DAILY 02/17/20 02/17/20 methadone 10 mg tablet 30 mg PO DAILY 02/17/20 02/17/20 spironolactone 25 mg tablet 25 mg PO DAILY 02/17/20 02/17/20 topiramate 100 mg tablet 100 mg PO BID 02/17/20 02/17/20 Allergies Allergy/AdvReac Type Severity Reaction Status Date / Time codeine Allergy Mild Rash Verified 02/17/20 18:20 clindamycin AdvReac Intermediate Agitated Verified 02/17/20 18:20 Review of Systems Review of Systems ROS Unobtainable: Unobtainable due to mental condition Patient History Medical History Hypothyroidism Opioid use disorder Seizure disorder Surgical History History of craniotomy Family History Father Hypertension Mother Emphysema lung Smoker Social History household members: none Smoking Status: Current every day smoker alcohol intake: former Smoking Status: Current every day smoker tobacco type: cigarettes Substance Use Type: heroin and IV drugs Exam Initial Vital Signs Initial Vital Signs: Vital Signs Temperature 97.6 F 01/16/21 10:09 Pulse Rate 58 L 01/16/21 10:09 Respiratory Rate 17 01/16/21 10:09 Blood Pressure 114/64 01/16/21 10:09 Pulse Oximetry 97 01/16/21 10:09 Const General: disheveled HENMT Head: normal to inspection and normocephalic Resp Other: Not hypoxic, coarse breath sounds bilaterally, is tachypneic, Cardio Rate: regular rate Rhythm: regular rhythm GI Palpation: soft Skin General: no rashes or lesions noted Neuro Other: Patient does open her eyes on her own does move all 4 extremities however does not answer any of my questions. She has periods of time when she is more cooperative than others. Extrem General: capillary refill normal Psych Appearance: disheveled Scores GCS [place] coma scale eye opening: To sound [place] coma scale verbal response: Sounds Ernst coma scale motor response: Localising Ernst coma scale total score: 10 Course Orders Ordered: ED Orders 01/16/21 10:23 COVID19 -Nasal swab/Pre-Proc Stat 01/16/21 10:40 Basic Metabolic Panel Stat Complete Blood Count AUTO DIFF Stat Ethanol (ETOH) Stat Thyroid Stimulating Hormone Stat Vital Signs Vital signs: Vital Signs - 8 hr 01/16/21 10:09 01/16/21 10:16 01/16/21 10:30 Temperature 97.6 F Pulse Rate 58 L 67 71 Respiratory Rate 17 18 17 Blood Pressure 114/64 Pulse Oximetry 97 98 100 01/16/21 10:55 01/16/21 11:00 01/16/21 11:01 Temperature Pulse Rate 67 74 64 Respiratory Rate 17 18 17 Blood Pressure 147/72 H 120/93 H Pulse Oximetry 97 96 97 01/16/21 11:30 01/16/21 12:00 01/16/21 12:30 Temperature Pulse Rate 71 65 81 Respiratory Rate 18 16 Blood Pressure 131/93 H 136/80 145/80 H Pulse Oximetry 98 94 95 01/16/21 12:41 01/16/21 13:00 01/16/21 13:30 Temperature Pulse Rate 74 66 66 Respiratory Rate 18 Blood Pressure 118/67 115/61 114/57 L Pulse Oximetry 95 93 93 01/16/21 14:00 01/16/21 14:30 01/16/21 15:00 Temperature Pulse Rate 74 62 75 Respiratory Rate 18 16 20 Blood Pressure 124/61 117/54 L 123/58 L Pulse Oximetry 95 93 95 01/16/21 15:30 Temperature Pulse Rate 73 Respiratory Rate 21 Blood Pressure 128/66 Pulse Oximetry 93 Medical Decision Making Lab Data Lab results reviewed: Yes I reviewed the patient's lab results. Result diagrams: 01/16/21 10:40 01/16/21 10:40 Labs: Lab Results 01/16/21 01/16/21 01/16/21 Range/Units 10:23 10:40 10:40 WBC 5.8 (4.5-11.0) X10^3/uL RBC 3.65 L (4.0-5.2) X10^6/uL Hgb 11.6 L (12.0-16.0) g/dL Hct 33.2 L (36-46) % MCV 91.2 (80-100) fL MCH 31.9 (26-34) PG MCHC 35.0 (30-36) % RDW 13.7 (11.6-14.8) % Plt Count 114 L (150-400) X10^3/uL Neut % (Auto) 66.4 (50-75) % Lymph % (Auto) 19.5 L (25-40) % Saline % (Auto) 11.4 (3-14) % Eos % (Auto) 2.2 (2-4) % Baso % (Auto) 0.5 (0-2) % Neut # (Auto) 3900 (2094-6203) /uL Lymph # (Auto) 1100 (6649-7675) /uL Saline # (Auto) 700 (0-900) /uL Eos # (Auto) 100 (0-450) /uL Baso # (Auto) 0 (0-100) /uL Sodium 136 L (137-145) mmol/L Potassium 3.6 (3.4-5.1) mmol/L Chloride 104 (98-107) mmol/L Carbon Dioxide 24 (22-32) mmol/L BUN 14 (7-17) mg/dL Creatinine 0.94 (0.52-1.04) mg/dL Estimated GFR > 60.0 (>60) mL/min BUN/Creatinine Ratio 14.9 (6-22) Glucose 95 (80-110) mg/dL Calcium 9.6 (8.4-10.2) mg/dL TSH (0.47-4.68) uIU/mL Ethyl Alcohol < 10 ( - 10) mg/dL SARS-CoV-2 (PCR) Negative (Negative) 01/16/21 Range/Units 10:40 WBC (4.5-11.0) X10^3/uL RBC (4.0-5.2) X10^6/uL Hgb (12.0-16.0) g/dL Hct (36-46) % MCV (80-100) fL MCH (26-34) PG MCHC (30-36) % RDW (11.6-14.8) % Plt Count (150-400) X10^3/uL Neut % (Auto) (50-75) % Lymph % (Auto) (25-40) % Saline % (Auto) (3-14) % Eos % (Auto) (2-4) % Baso % (Auto) (0-2) % Neut # (Auto) (2852-3391) /uL Lymph # (Auto) (7548-3404) /uL Saline # (Auto) (0-900) /uL Eos # (Auto) (0-450) /uL Baso # (Auto) (0-100) /uL Sodium (137-145) mmol/L Potassium (3.4-5.1) mmol/L Chloride (98-107) mmol/L Carbon Dioxide (22-32) mmol/L BUN (7-17) mg/dL Creatinine (0.52-1.04) mg/dL Estimated GFR (>60) mL/min BUN/Creatinine Ratio (6-22) Glucose (80-110) mg/dL Calcium (8.4-10.2) mg/dL TSH 3.17 (0.47-4.68) uIU/mL Ethyl Alcohol ( - 10) mg/dL SARS-CoV-2 (PCR) (Negative) MDM Narrative Medical decision making narrative: Patient required no further Narcan in the emergency department. Was observed for several hours. Was able to walk to the bathroom. She maintained airway. Was somewhat somnolent. She stated that this morning she took a friend's Klonopin and then had her normal dose of methadone. I suspect that the combination of the 2 medications is what caused her presenting symptoms today. After several hours without respiratory depression will discharge the patient home with her boyfriend. She was given return precautions. She did expressed understanding agreement. Discharge Plan Departure Patient Disposition: Home Clinical Impression: Opioid use disorder Instructions: Opioid Use Disorder Activity Restrictions/Additional Instructions: No driving for the next 24 hours. Continue to take all of your medications as directed. Return to the emergency department for any new or worsening symptoms Prescriptions: No Action methadone 10 mg Tablet 30 mg PO DAILY RF: 0 furosemide 20 mg Tablet 20 mg PO DAILY RF: 0 spironolactone 25 mg Tablet 25 mg PO DAILY RF: 0 levothyroxine 75 mcg Tablet 75 mcg PO DAILY RF: 0 topiramate 100 mg Tablet 100 mg PO BID RF: 0
[2021-01-16 11:02] LABS: Add Manual Diff / Slide Review NO; Basophils Absolute Auto 0 /uL (0-100); Basophils Percent Auto 0.5 % (0-2); Eosinophils Absolute Auto 100 /uL (0-450); Eosinophils Percent Auto 2.2 % (2-4); Hematocrit 33.2 % (36-46); Hemoglobin 11.6 g/dL (12.0-16.0); Lymphocytes Absolute Auto 1100 /uL (1100-4500); Lymphocytes Percent Auto 19.5 % (25-40); Mean Corpuscular Hemoglobin 31.9 PG (26-34); Mean Corpuscular Volume 91.2 fL (80-100); Monocytes Absolute Auto 700 /uL (0-900); Monocytes Percent Auto 11.4 % (3-14); Neutrophils Absolute Auto 3900 /uL (1500-7000); Neutrophils Percent Auto 66.4 % (50-75); Platelet Count 114 X10^3/uL (150-400); Red Blood Cell Count 3.65 X10^6/uL (4.0-5.2); Red Cell Distribution Width 13.7 % (11.6-14.8); White Blood Cell Count 5.8 X10^3/uL (4.5-11.0)
--- NOTE | 2021-01-16 11:04 | PC.NURSE ---
pt easier to arouse but still dozing off, pt moving/flailing at times when awake and now arousable to simply voice. pt reports she took shameka and darcie this am a friends darcie
[2021-01-16 11:19] LABS: BUN Creatinine Ratio 14.9 (6-22); Blood Urea Nitrogen 14 mg/dL (7-17); Calcium 9.6 mg/dL (8.4-10.2); Carbon Dioxide 24 mmol/L (22-32); Chloride 104 mmol/L (98-107); Estimated Glomerular Filt Rate > 60.0 mL/min (>60); Ethanol (ETOH) < 10 mg/dL; Glucose 95 mg/dL (80-110); HEMOLYSIS 43 (0-50); Potassium 3.6 mmol/L (3.4-5.1); Sodium 136 mmol/L (137-145)
[2021-01-16 11:52] LABS: Thyroid Stimulating Hormone 3.17 uIU/mL (0.47-4.68)
== END 2021-01-16 15:52 | disposition home or self-care (01) ==
PROVIDERS: Emergency Provider Emergency Medicine
DX: R40.4 Transient alteration of awareness (principal); F11.10 Opioid abuse, uncomplicated; Z20.822 Contact with and (suspected) exposure to COVID-19
CPT/HCPCS: 36415; 80048; 80320; 84443; 85025; 87635; 99283; C9803